=== PATIENT | female | born 1955 | race Caucasian/White ===

== ENCOUNTER → 2018-08-19 14:26 | Outpatient (CLI) | payer OTHER, SELFPAY ==
[2018-08-17 18:00] VITALS: BMI 23.3
[2018-08-19 14:27] LABS: Mucous, Urine 0 SEEN /hpf (<or=2+); Red Blood Cells-Urine 0 SEEN /hpf (0-5)
[2018-08-19 14:39] LABS: Color, Urine Yellow (Yellow); Glucose, Dipstick Normal (Normal); Ketone-Dipstick Negative (Negative); Leukocyte Esterase-Dipstick 25 /ul (Negative); Nitrite-Dipstick Negative (Negative); Occult Blood-Urine Negative /ul (Negative); Protein-Dipstick Negative (Negative); Urine Bilirubin Dipstick Negative (Negative); Urine Clarity Sl. Cloudy (Clear); Urine Urobilinogen Normal (Normal)
[2018-08-19 14:56] LABS: Bacteria 1+ /hpf (None Seen); Squamous Epithelial Cells - UA 5-10 SEEN /hpf (5-10); White Blood Cells 0-5 SEEN /hpf (0-5)
== END ==
PROVIDERS: Family Provider Family Medicine; PCP Family Medicine; Referring Provider Physician Assistant Surgical; Visit Provider Physician Assistant Surgical
DX: B37.3 Candidiasis of vulva and vagina (principal)
CPT/HCPCS: 81001; 87086; 87088

== ENCOUNTER 2018-12-11 15:03 | Observation (INO) | payer OTHER, SELFPAY ==
[2018-08-17 18:00] VITALS: BMI 23.3
[2018-12-11] VITALS (10 sets, daily range): BP systolic 113–178; BP diastolic 76–97; PULSE 71–91; RESP 16–18; TEMP 36.8–36.9; O2SAT 95–98; BMI 24.3; BMI 24.0
--- NOTE | 2018-12-11 15:17 | EKG12_ITS ---
Test Reason : CP ADMISSION Blood Pressure : / mmHG Vent. Rate : 077 BPM Atrial Rate : 077 BPM P-R Int : 138 ms QRS Dur : 092 ms QT Int : 408 ms P-R-T Axes : 040 029 023 degrees QTc Int : 461 ms Normal sinus rhythm Normal ECG When compared with ECG of 11-DEC-2018 15:05, MANUAL COMPARISON REQUIRED, DATA IS UNCONFIRMED Confirmed by DAVID GARCIA, JOSEF ([id number]), news assignment editor JANINE BOUCHER ([id number]) on 12/14/2018 10:39:05 A M Referred By: Shelton Odom Confirmed By:TOR HERNANDEZ MD
--- NOTE | 2018-12-11 15:20 | ED.DCSUM_ITS ---
- ER Visit Summary Date of Service: 12/11/18 Chief Complaint: [Chest pain] History of Present Illness: The patient is a 62 F [presents to the emergency department with chest discomfort that started 2 AM this morning. Patient states she awoke with pressure and heaviness in her left chest lasted about 10 minutes or so. Patient denied any nausea or vomiting associated with it or diaphoresis. Patient gives history of 2 days ago having a syncopal episode while sitting in her chair at a baseball game. Patient woke up this morning and continued to have some minimal discomfort over the left chest and states that she just does not feel right. Patient did have recent travel to [place] several weeks ago where they drove back and forth. Patient denies any fever or cough. Patient was seen at her primary care physician's office today and was referred to the emergency department for evaluation of her chest pain. She took aspirin earlier today.] Physical Examination: [HEENT-PERRLA, EOMI. Cranial nerves II through XII grossly intact. TMs clear. Mucous membranes moist. No adenopathy. Cardiovascular-regular rate and rhythm without murmur or ectopy Lungs-clear to auscultation, chest wall stable without crepitus or subcu emphysema Abdomen-normoactive bowel sounds, soft, nontender, no rebound or rigidity, no peritoneal signs. Extremities-intact ?4, normal range of motion, normal pulses, atraumatic] Test Results: [EKG obtained showed a sinus rhythm with a ventricular rate of 83 bpm with septal infarct and possible left atrial enlargement.] CBC with differential shows a white count of 3.8, hemoglobin 13.7, hematocrit 41, platelets 236. Chemistries unremarkable. Troponin is less than 0.15. D-dimer is less than 0.27. Chest x-ray showed nothing acute. Emergency Department Course and Treatment: [She had an IV line established and was she was placed on a radiation monitor. Patient was given 1 sublingual nitro which seemed to improve her pain.] Treatment Plan: [Admit for further work-up and evaluation of her chest pain] Disposition: [Admit] Impression: [Chest pain-rule out acute coronary syndrome.] This note was generated with [employer] software. It may contain incorrect words, spelling, and punctuation that were not noted in review of the chart prior to signing ED Disposition - Plan for ED Patient: Referrals: Gaston Hudson MD [NON-STAFF] -
[2018-12-11 15:26] LABS: Absolute Lymphocyte Count 0.85 X10^3/uL (0.83-4.51); Absolute Neutrophil Count 2.3 X10^3/uL (2.0-7.7); Basophil# 0.03 X10^3/uL; Basophil% 0.8 % (0-1); Eosinophil# 0.04 X10^3/uL; Eosinophils% 1.1 % (0-5); Hematocrit 41.5 % (37-47); Hemoglobin 13.7 g/dL (12.0-15.0); Lymphocyte # 0.85 X10^3/ul (4.0); Lymphocyte % 22.6 % (19-41); Mean Corpuscular Hgb 32.4 pg (27.0-32.0); Mean Corpuscular Volume 98.1 fL (81-99); Mean Platelet Vol. 9.1 fl (6.2-12.0); Monocyte# 0.52 X10^3/uL; Monocyte% 13.8 % (0-10); NRBC Flagged by Analyzer 0 % (0-5); Neutrophil # 2.31 X10^3/uL (2.7-7.7); Neutrophil % 61.4 % (47-70); Platelet Count 236 K/mm3 (150-450); RBC Distribution Width CV 11.8 % (11.6-14.6); RBC Distribution Width SD 42.2 fl (35.1-43.9); Red Blood Count 4.23 M/mm3 (4.2-5.4); White Blood Count 3.8 K/mm3 (4.4-11.0)
[2018-12-11] MEDS: 0.9% Normal Saline 1,000 ML 150 ML IV (15:27)
[2018-12-11] MEDS: Nitroglycerin SL (ED/IMG/CATH) 0.4 MG TABLET SUBLINGUAL ×2 (15:27→15:41)
--- NOTE | 2018-12-11 15:30 | RAD_ITS ---
STUDY: X-RAY CHEST REASON FOR EXAM: Female, 62 years old. Chest pain TECHNIQUE: Frontal view of the chest COMPARISON: None. FINDINGS: The lungs are clear. There are no pleural effusions. There is no pneumothorax. The heart is normal in size. The visualized osseous structures are within normal limits. RAD/Chest 1 View (Portable) IMPRESSION: No acute thoracic pathology. Electronically Signed: Conor Up, at 16:07 EDT Tel , Service support ,
[2018-12-11 15:41] LABS: Anion Gap 8 (5-15); BUN 11 mg/dL (7-18); BUN/Creat Ratio 12.5 RATIO (10-20); Calcium,Total 9.6 mg/dL (8.5-10.1); Chloride 105 mmol/L (98-107); Creatinine, Serum 0.88 mg/dL (0.55-1.02); EST Glomerular Filtration Rate 69 mL/min (>60); Est Glom Filt Rate - Afr Amer 84 mL/min (>60); Estimated Creatinine Clearance 56.56 ml/min; Glucose 83 mg/dL (74-106); Potassium 3.9 mmol/L (3.5-5.1); Sodium Level 140 mmol/L (136-145)
[2018-12-11 16:08] LABS: D-Dimer Quantitative (DVT/PE) < 0.27 FEU/ug/m (0.27-0.49)
--- NOTE | 2018-12-11 16:53 | HP.PCM_ITS ---
<Ed Douglass - Last Filed: 12/11/18 16:53> Problem List (1) Chest pain Status: Acute (2) Depression Status: Chronic (3) Nicotine abuse Status: Chronic History of Present Illness Date of Admission: 12/11/18 Chief Complaint: chest pain The patient is a 62 year old F with pmhx of depression and occasional social smoker who presents to the ER with c/o chest pain and a recent syncopal episode. On monday she was sitting outside at a baseball game and suddenly became dizzy and passed out. She was out for an unspecified amount of time, and felt normal after she woke up. She had no further issues until today. This AM she woke up with chest pain. This woke her up, and felt like someone was sitting on her chest,. She sat up, did not get out of bed, and after 10-15 minutes it spontaneously went away. Later it came back, less severely, and she describes it as a left sided pressure 2/10 in severity. She went to see her PCP who sent her here. In the ER she was given 2 nitro which helped a little. The pain is nonradiating, and she has no SOB/LH/Dizziness/Nausea. She has had this occur at least two other times randomly this year but has never had it check out. She is very concerned because her mom suddenly of an MS at age 63. Her father also had heart disease. She does not think she will have any issue walking on a tread mill. [] Past Medical History Past Medical History (Chronic Problems): Chronic Problems Depression (Chronic) Nicotine abuse (Chronic) Allergies No Known Allergies Allergy (Unverified 08/17/18 18:01) Home Medications: Ambulatory Orders Medication Instructions Recorded Bupropion HCl [Bupropion HCl Sr] 150 mg PO BID 12/11/18 Surgical History: Surgical History (Last Updated 08/17/18 @ 18:01 by Emy Read) History of hip replacement Z96.649 History of hip surgery Z98.890 Psychiatric History: Depression DIRECTOR CHILD ABUSE THERAPY History: No pertinent DIRECTOR CHILD ABUSE THERAPY history Lives: Spouse/ Significant Other Smoking Status: Current some day smoker Tobacco Use: Cigarettes Alcohol: Occasional Drugs: None - *Family History Maternal History Items: Heart Disease - suddenly of MS at age 63. Paternal History Items: Heart Disease Review of Systems Constitutional: Denies: Chills, Fever, Weight Change HEENT: Denies: Head Aches, Sinus Congestion, Sinus Drainage Cardiovascular: Reports: Chest Pain, Chest Pressure, Syncope. Denies: Chest Tightness, Edema, Heaviness, Light Headedness, Palpitations Respiratory: Denies: Cough, Shortness of Breath, Shortness of breath at rest, Shortness of breath upon exertion, Sputum production, Wheezing Gastrointestinal: Denies: Abdominal Pain, Diarrhea, Nausea, Vomiting Genitourinary: Denies: Dysuria Musculoskeletal: Denies: Joint Pain, Joint Tenderness Skin: Denies: Rash, Wounds Neurological: Denies: Numbness, Tingling, Focal weakness Psychiatric: Denies: Anxiety, Depression, Homicidal Ideations, Suicidal Ideations Hematologic/ Lymphatic: Denies: Easy Bruising, Easy Bleeding VTE Information - Inpt Only VTE Present on Admission: No VTE Mechan Device Prophylaxis: None VTE Pharm Prophylaxis ordered?: Yes Patient Problems: Active and Suspected Problems Chest pain (Acute) - Physical Exam General: Alert, Oriented x3, Cooperative HEENT: Atraumatic, PERRLA, EOMI, Normocephalic Neck: Supple, No JVD, Negative Carotid Bruits Lungs: Clear to auscultation, Normal air movement Cardiovascular: Regular rate, No murmurs Abdomen: Bowel Sounds Present, Soft, Non Tender Extremities: No edema, Capillary Refill Less than 3 Seconds Skin: No rashes, No breakdown Musculoskeletal: No Tenderness to Palpation of Joints or Extremities Neurological: Cranial nerves II-XII grossly intact Psych/Mental Status: Normal Affect, Appropriate Vital Signs Temp Pulse Resp BP Pulse Ox 98.5 F 91 18 113/76 95 12/11/18 15:03 12/11/18 15:41 12/11/18 16:21 12/11/18 16:21 12/11/18 16:21 Oxygen Delivery Method Room Air Weight: 116 lb 2.938 oz Body Mass Index (BMI) 24.3 Laboratory Tests Past 24 Hrs 12/11/18 12/11/18 12/11/18 15:17 15:17 15:17 WBC 3.8 L RBC 4.23 Hgb 13.7 Hct 41.5 MCV 98.1 MCH 32.4 H MCHC 33.0 RDW Std Deviation 42.2 RDW Coeff of Tony 11.8 Plt Count 236 MPV 9.1 Immature Gran % (Auto) 0.300 Neut % (Auto) 61.4 Lymph % (Auto) 22.6 Taliaferro % (Auto) 13.8 H Eos % (Auto) 1.1 Baso % (Auto) 0.8 Absolute Neuts (auto) 2.3 Absolute Lymphs (auto) 0.85 Nucleated RBC % 0 D-Dimer Quant (PE/DVT) Cancelled Sodium 140 Potassium 3.9 Chloride 105 Carbon Dioxide 27.0 Anion Gap 8 BUN 11 Creatinine 0.88 Estim Creat Clear Calc 56.56 Est GFR (MDRD) Af Amer 84 Est GFR (MDRD) Non-Af 69 BUN/Creatinine Ratio 12.5 Glucose 83 Calcium 9.6 Troponin I < 0.015 12/11/18 15:37 WBC RBC Hgb Hct MCV MCH MCHC RDW Std Deviation RDW Coeff of Tony Plt Count MPV Immature Gran % (Auto) Neut % (Auto) Lymph % (Auto) Taliaferro % (Auto) Eos % (Auto) Baso % (Auto) Absolute Neuts (auto) Absolute Lymphs (auto) Nucleated RBC % D-Dimer Quant (PE/DVT) < 0.27 L Sodium Potassium Chloride Carbon Dioxide Anion Gap BUN Creatinine Estim Creat Clear Calc Est GFR (MDRD) Af Amer Est GFR (MDRD) Non-Af BUN/Creatinine Ratio Glucose Calcium Troponin I Assessment/Plan All Active Problems Chest pain (Acute) Yeast vaginitis (Acute) 1. Chest pain - woke up with CP described as someone sitting on her chest. Slightly relieved with nitro. Mother suddenly at 63 with MS. Father also had hx CAD. She has no hx of heart disease. She rarely smokes cigarettes. EKG is negative, CXR is negative, Trop is negative. -Admit to PCU -Tele -Cycle enzymes -Repeat AM EKG -Treadmill stress in AM. 2. Recent syncope - in addition to above, obtain echo. 3. Occasional smoker - patch if desired. Needs complete cessation DVT ppx: lovenox This patient was seen by Ed Douglass PA-C under the supervision of Dr. Odom. <Shelton Odom - Last Filed: 12/11/18 20:26> History of Present Illness The patient is a 62 year old F with no significant medical problems except depression came to ED with chest pressure when she woke up. This is localized, left-sided without associated with shortness of breath, dizziness, nausea, diaphoresis or palpitation. Earlier, on past Monday about 2 days ago she passed out twice in quick succession when she was sitting outside on [place] [employer] game. Patient states she suddenly felt dark before her eyes along with spinning sensation and see passed out. She woke up and then passed again lasted for about 10 minutes. She felt normal when she woke up from syncope. She denies any previous history of chest pressure or syncope, stroke or coronary artery disease. [] Past Medical History Allergies No Known Allergies Allergy (Unverified 08/17/18 18:01) Surgical History: Surgical History (Last Updated 08/17/18 @ 18:01 by Emy Read) History of hip replacement Z96.649 History of hip surgery Z98.890 - Physical Exam General: Alert, Oriented x3, Cooperative HEENT: Atraumatic, PERRLA, EOMI, Normocephalic Neck: Supple, No JVD, Negative Carotid Bruits Lungs: Clear to auscultation, Normal air movement, No rhonchi, No wheeze, No rales Cardiovascular: Regular rate, Regular Rhythm, Normal S1, Normal S2, No murmurs Abdomen: Bowel Sounds Present, Soft, Non Tender, Non-Distended Extremities: No edema, Capillary Refill Less than 3 Seconds Skin: No rashes, No breakdown Musculoskeletal: No Tenderness to Palpation of Joints or Extremities Neurological: Cranial nerves II-XII grossly intact Psych/Mental Status: Normal Affect, Appropriate Vital Signs Temp Pulse Resp BP Pulse Ox 98.3 F 73 16 138/85 H 97 12/11/18 17:22 12/11/18 18:51 12/11/18 17:22 12/11/18 17:22 12/11/18 17:22 Oxygen Delivery Method Room Air Weight: 114 lb 10.246 oz Body Mass Index (BMI) 24.0 Intake and Output for Last 24 Hours 12/09/18 12/10/18 12/11/18 23:59 23:59 23:59 Intake Total 422.5 / 422.5 Balance 422.5 / 422.5 Laboratory Tests Past 24 Hrs 12/11/18 12/11/18 12/11/18 15:17 15:17 15:17 WBC 3.8 L RBC 4.23 Hgb 13.7 Hct 41.5 MCV 98.1 MCH 32.4 H MCHC 33.0 RDW Std Deviation 42.2 RDW Coeff of Tony 11.8 Plt Count 236 MPV 9.1 Immature Gran % (Auto) 0.300 Neut % (Auto) 61.4 Lymph % (Auto) 22.6 Taliaferro % (Auto) 13.8 H Eos % (Auto) 1.1 Baso % (Auto) 0.8 Absolute Neuts (auto) 2.3 Absolute Lymphs (auto) 0.85 Nucleated RBC % 0 D-Dimer Quant (PE/DVT) Cancelled Sodium 140 Potassium 3.9 Chloride 105 Carbon Dioxide 27.0 Anion Gap 8 BUN 11 Creatinine 0.88 Estim Creat Clear Calc 56.56 Est GFR (MDRD) Af Amer 84 Est GFR (MDRD) Non-Af 69 BUN/Creatinine Ratio 12.5 Glucose 83 Calcium 9.6 Troponin I < 0.015 12/11/18 12/11/18 15:37 18:05 WBC RBC Hgb Hct MCV MCH MCHC RDW Std Deviation RDW Coeff of Tony Plt Count MPV Immature Gran % (Auto) Neut % (Auto) Lymph % (Auto) Taliaferro % (Auto) Eos % (Auto) Baso % (Auto) Absolute Neuts (auto) Absolute Lymphs (auto) Nucleated RBC % D-Dimer Quant (PE/DVT) < 0.27 L Sodium Potassium Chloride Carbon Dioxide Anion Gap BUN Creatinine Estim Creat Clear Calc Est GFR (MDRD) Af Amer Est GFR (MDRD) Non-Af BUN/Creatinine Ratio Glucose Calcium Troponin I < 0.015 Assessment/Plan This patient was seen in conjunction with Ed NOWAK. I have independently int erviewed and examined the patient and reviewed pertinent history, examination findings, laboratory and plan of management. I have reviewed the note and agree with the documented findings with the few additional points. In brief, patient is admitted for localized left-sided chest pressure without associated shortness of breath, dizziness, diaphoresis or palpitation. She also passed out twice in quick succession about 2 days ago. Overall her passing seems related to dehydration as she did not had much water food intake except cereal in the morning. It may be vasovagal syncope. 2 serial EKG shows normal sinus rhythm with no ST-T changes suggestive of ischemia. Troponins are normal. Chest x-ray normal. 2D echo and nuclear stress test for tomorrow morning. Plan of management discussed with patient's near the bedside. I have discussed my assessment with Ed NOWAK and orders have been reviewed. Laboratory Results 12/11/18 15:17: WBC 3.8 L, RBC 4.23, Hgb 13.7, Hct 41.5, MCV 98.1, MCH 32.4 H, MCHC 33.0, RDW Std Deviation 42.2, RDW Coeff of Tony 11.8, Plt Count 236, MPV 9.1, Immature Gran % (Auto) 0.300, Neut % (Auto) 61.4, Lymph % (Auto) 22.6, Taliaferro % (Auto) 13.8 H, Eos % (Auto) 1.1, Baso % (Auto) 0.8, Absolute Neuts (auto) 2.3, Absolute Lymphs (auto) 0.85, Nucleated RBC % 0 12/11/18 15:17: Sodium 140, Potassium 3.9, Chloride 105, Carbon Dioxide 27.0, Anion Gap 8, BUN 11, Creatinine 0.88, Estim Creat Clear Calc 56.56, Est GFR (MDRD) Af Amer 84, Est GFR (MDRD) Non-Af 69, BUN/Creatinine Ratio 12.5, Glucose 83, Calcium 9.6, Troponin I < 0.015 12/11/18 15:17: D-Dimer Quant (PE/DVT) Cancelled 12/11/18 15:37: D-Dimer Quant (PE/DVT) < 0.27 L 12/11/18 18:05: Troponin I < 0.015 Clinical Impression(s) from Imaging Studies Chest X-Ray 12/11/18 15:30 IMPRESSION: No acute thoracic pathology. Code Visit OBSV E&M: [id number] Initial observation care L3
--- NOTE | 2018-12-11 17:00 | EKG12_ITS ---
Test Reason : Blood Pressure : / mmHG Vent. Rate : 065 BPM Atrial Rate : 065 BPM P-R Int : 162 ms QRS Dur : 104 ms QT Int : 442 ms P-R-T Axes : 049 021 005 degrees QTc Int : 459 ms Normal sinus rhythm Normal ECG When compared with ECG of 11-DEC-2018 17:18, MANUAL COMPARISON REQUIRED, DATA IS UNCONFIRMED Confirmed by DAVID GARCIA, JOSEF ([id number]), business editor JANINE BOUCHER ([id number]) on 12/14/2018 10:40:16 A M Referred By: Shelton Odom Confirmed By:TOR HERNANDEZ MD
[2018-12-11] MEDS: Enoxaparin 40 MG/0.4 ML Syringe SC (18:52)
[2018-12-11] MEDS: buPROPion (SR) 150 MG Tablet.SA PO (21:00)
[2018-12-12] VITALS (9 sets, daily range): BP systolic 123–143; BP diastolic 70–91; PULSE 60–81; RESP 14–16; TEMP 35.8–37.1; O2SAT 97–99
[2018-12-12] MEDS: Aspirin 81 MG TAB.CHEW PO (05:21)
[2018-12-12] MEDS: 0.9% NaCl Peripheral Flush Adult/Peds IV (05:55)
--- NOTE | 2018-12-12 05:55 | EKG12_ITS ---
Test Reason : CP Blood Pressure : / mmHG Vent. Rate : 083 BPM Atrial Rate : 083 BPM P-R Int : 148 ms QRS Dur : 090 ms QT Int : 370 ms P-R-T Axes : 035 010 026 degrees QTc Int : 434 ms Normal sinus rhythm Possible Left atrial enlargement Septal infarct , age undetermined Abnormal ECG Confirmed by AFSHAN BLANCAS ([id number]), photograph editor JANINE BOUCHER ([id number]) on 12/18/2018 1:25:32 PM Referred By: Shelton Odom Confirmed By:AFSHAN BLANCAS
--- NOTE | 2018-12-12 05:55 | ECHOD_ITS ---
Reason For Study: SYNCOPE Procedure This was a 2D Doppler, Color Flow transthoracic echocardiogram. Exam performed in department. Left Ventricle Normal size and thickness. The estimated ejection fraction is 55 %. No evidence for diastolic dysfunction. No regional wall motion abnormalities noted. Right Ventricle Normal RV size. Normal systolic function. Atria Normal left atrium. Normal right atrium. Bubble contrast study negative for right to left interatrial shunt. Mitral Valve There is no mitral valve stenosis. Trivial mitral valve insufficiency. Tricuspid Valve There is no tricuspid stenosis. Unable to estimate RV systolic pressure due to insufficient tricuspid regurgitant envelope. Trivial tricuspid valve insufficiency. Aortic Valve Trisinus/trileaflet aortic valve. There is no aortic stenosis. No aortic valve insufficiency. Pulmonic Valve There is no pulmonic valvular stenosis. No pulmonic valve insufficiency. Great Vessels Normal aortic root. Pericardium/Pleural No pericardial effusion. Medication Performed a rapid injection of agitated mix of 9 cc saline and 1cc air to assess for atrial septal defect. MMode/2D Measurements & Calculations LVIDd: 3.7 cm IVSd: 0.78 cm Ao root diam: 3.3 cm LVIDs: 2.7 cm LVPWd: 0.88 cm RVDd: 3.2 cm FS: 27.2 % LAV(MOD-bp): 37.2 ml LVAd ap4: 28.3 cm2 SV(MOD-sp4): 43.2 ml LAV(MOD-bp) Indexed: 26.3 ml/m2 EDV(MOD-sp4): 81.9 ml LAV(MOD-sp2): 33.9 ml EDV(sp4-el): 83.9 ml LAV(MOD-sp4): 39.3 ml LVAs ap4: 17.1 cm2 ESV(MOD-sp4): 38.7 ml ESV(sp4-el): 36.7 ml EF(MOD-sp4): 52.7 % EF(sp4-el): 56.3 % SV(sp4-el): 47.2 ml LA A4 area: 15.2 cm2 LA dimension(2D): 3.3 cm RA A4 area: 14.0 cm2 Time Measurements MV dec time: 0.26 sec Doppler Measurements & Calculations MV E max mateo: 42.7 cm/sec Lat Peak E' Mateo: 8.9 cm/sec Med Peak E' Mateo: 7.5 cm/sec MV A max mateo: 50.3 cm/sec E/E' lat: 4.8 E/E' med: 5.7 MV E/A: 0.85 Ao V2 max: 130.4 cm/sec LV V1 max: 80.9 cm/sec PA V2 max: 78.1 cm/sec Ao max P.8 mmHg LV V1 max P.6 mmHg TR max mateo: 203.4 cm/sec TR max P.5 mmHg Interpretation Summary The estimated ejection fraction is 55 %. No evidence for diastolic dysfunction. Trivial mitral valve insufficiency. Trivial tricuspid valve insufficiency. Ordering Physician: Ed Douglass Referring Physician: Shelton Odom Performed By: Grace Puckett RDCS
[2018-12-12 06:01] LABS: Cholesterol 256 mg/dL (200); High Density Lipoprotein 69 mg/dL; Triglycerides 131 mg/dL; Very Low Density Lipoprotein 26 mg/dL (5-40)
[2018-12-12] MEDS: buPROPion (SR) 150 MG Tablet.SA PO ×2 (09:30→21:19)
--- NOTE | 2018-12-12 13:17 | STRESSREP ---
Stress Test Report Date: 12/12/2018 Procedure: Exercise tolerance test/imaging study Indications: Chest pain Consent: Per the patient Procedure: The patient exercised on a Dillon protocol for 6 minutes achieving a peak heart rate of 153 bpm (95 % predicted maximal heart rate) with a peak blood pressure 152/80 mmHg and a peak MET capacity of 7 METs. The baseline ECG demonstrated normal sinus rhythm, poor R wave progression in the anterior leads. The peak exercise ECG demonstrated about [address] depression in the lateral leads and inferior leads. EKG during recovery revealed return of ST segments to baseline. [There were no cardiac dysrhythmias pretest, during exercise, or recovery]. The functional capacity was considered borderline for age. There was exercised induced mild chest discomfort which got better during the recovery period. The examination was discontinued secondary to discomfort. Impression: 1. Technically adequate (percent predicted maximal heart rate greater than 85%) exercise tolerance test 2. Stress test is positive for exercise-induced EKG changes of ischemia 3. The test test is positive for exercise-induced chest pain 4. Functional capacity is borderline for age 5. Nuclear images pending Myocardial perfusion imaging study: Technique: The patient was injected with 11.3 mCi of technetium 99m Cardiolite and subsequently rest SPECT Cardiolite nuclear imaging was obtained in the horizontal long, vertical long, and short axis views. The patient exercised on a Dillon protocol. Please see above for details. The patient was injected with 32.8 mCi of technetium 99m Cardiolite and subsequently stress SPECT Cardiolite nuclear imaging was obtained in the horizontal long, vertical long, and short axis views. A gated Cardiolite study at peak stress was obtained. Interpretation: Rest and stress SPECT Cardiolite nuclear imaging status post realignment, normalization, and attenuation correction, demonstrates overall normal myocardial radioisotope uptake. The gated Cardiolite study demonstrates no significant regional wall motion abnormalities. The reported LVEF is 61 %. Impression: 1. There is no evidence of ischemia or infarction on the nuclear portion of the test. However the EKG portion was abnormal as described above. 2. The gated Cardiolite study reports an LVEF of 61 %. This note was generated with [employer] software. It may contain incorrect words, spelling, and punctuation that were not noted in checking the note before signing.
--- NOTE | 2018-12-12 13:40 | PCM.PROGNOTE ---
<Ed Douglass - Last Filed: 12/12/18 13:40> Patient Problems: Active and Suspected Problems Chest pain (Acute) Subjective: Ongoing mild left sided chest pressure. No SOB. No dizziness, LH. No Nausea. No diaphoresis. Stress test was abnormal. - Physical Exam General: Alert, Oriented x3, Cooperative HEENT: Atraumatic, PERRLA, EOMI, Normocephalic Neck: Supple, No JVD, Negative Carotid Bruits Lungs: Clear to auscultation, Normal air movement Cardiovascular: Regular rate, No murmurs Abdomen: Bowel Sounds Present, Soft, Non Tender Extremities: No edema, Capillary Refill Less than 3 Seconds Skin: No rashes, No breakdown Musculoskeletal: No Tenderness to Palpation of Joints or Extremities Neurological: Cranial nerves II-XII grossly intact Psych/Mental Status: Normal Affect, Appropriate, Alert and oriented to time, place, person, mood and affect Vital Signs Temp Pulse Resp BP Pulse Ox 98.1 F 78 16 125/71 H 97 12/12/18 09:23 12/12/18 09:23 12/12/18 09:23 12/12/18 09:23 12/12/18 09:23 Oxygen Delivery Method Room Air Weight: 114 lb 10.246 oz Body Mass Index (BMI) 24.0 Intake and Output for Last 24 Hours 12/10/18 12/11/18 12/12/18 23:59 23:59 23:59 Intake Total 872.5 / 872.5 240 / 240 Balance 872.5 / 872.5 240 / 240 Laboratory Tests Past 24 Hrs 12/11/18 12/11/18 12/11/18 15:17 15:17 15:17 WBC 3.8 L RBC 4.23 Hgb 13.7 Hct 41.5 MCV 98.1 MCH 32.4 H MCHC 33.0 RDW Std Deviation 42.2 RDW Coeff of Tony 11.8 Plt Count 236 MPV 9.1 Immature Gran % (Auto) 0.300 Neut % (Auto) 61.4 Lymph % (Auto) 22.6 [place] % (Auto) 13.8 H Eos % (Auto) 1.1 Baso % (Auto) 0.8 Absolute Neuts (auto) 2.3 Absolute Lymphs (auto) 0.85 Nucleated RBC % 0 D-Dimer Quant (PE/DVT) Cancelled Sodium 140 Potassium 3.9 Chloride 105 Carbon Dioxide 27.0 Anion Gap 8 BUN 11 Creatinine 0.88 Estim Creat Clear Calc 56.56 Est GFR (MDRD) Af Amer 84 Est GFR (MDRD) Non-Af 69 BUN/Creatinine Ratio 12.5 Glucose 83 Calcium 9.6 Troponin I < 0.015 Triglycerides Cholesterol LDL Cholesterol VLDL Cholesterol HDL Cholesterol 12/11/18 12/11/18 12/11/18 15:37 18:05 21:02 WBC RBC Hgb Hct MCV MCH MCHC RDW Std Deviation RDW Coeff of Tony Plt Count MPV Immature Gran % (Auto) Neut % (Auto) Lymph % (Auto) [place] % (Auto) Eos % (Auto) Baso % (Auto) Absolute Neuts (auto) Absolute Lymphs (auto) Nucleated RBC % D-Dimer Quant (PE/DVT) < 0.27 L Sodium Potassium Chloride Carbon Dioxide Anion Gap BUN Creatinine Estim Creat Clear Calc Est GFR (MDRD) Af Amer Est GFR (MDRD) Non-Af BUN/Creatinine Ratio Glucose Calcium Troponin I < 0.015 < 0.015 Triglycerides Cholesterol LDL Cholesterol VLDL Cholesterol HDL Cholesterol 12/12/18 05:20 WBC RBC Hgb Hct MCV MCH MCHC RDW Std Deviation RDW Coeff of Tony Plt Count MPV Immature Gran % (Auto) Neut % (Auto) Lymph % (Auto) [place] % (Auto) Eos % (Auto) Baso % (Auto) Absolute Neuts (auto) Absolute Lymphs (auto) Nucleated RBC % D-Dimer Quant (PE/DVT) Sodium Potassium Chloride Carbon Dioxide Anion Gap BUN Creatinine Estim Creat Clear Calc Est GFR (MDRD) Af Amer Est GFR (MDRD) Non-Af BUN/Creatinine Ratio Glucose Calcium Troponin I Triglycerides 131 Cholesterol 256 H LDL Cholesterol 161 H VLDL Cholesterol 26 HDL Cholesterol 69 Medical Necessity - Tobacco Use Smoking Status: Current some day smoker Tobacco Use: Cigarettes Assessment/Plan All Active Problems Chest pain (Acute) Yeast vaginitis (Acute) 1. Chest pain - woke up with CP described as someone sitting on her chest. Ongoing left sided chest pressure. Abnormal stress. Cardiology consulted. Echo as below. D dimer negative. Trop negx3. CXR negative. 2. Recent syncope - no events on tele. Echo shows: Interpretation Summary The estimated ejection fraction is 55 %. No evidence for diastolic dysfunction. Trivial mitral valve insufficiency. Trivial tricuspid valve insufficiency. 3. Occasional smoker - patch if desired. Needs complete cessation 4. HLD - ASCVD score is 6.9% so I have started moderate dose atorvastatin. DVT ppx: lovenox This patient was seen by Ed Douglass PA-C under the supervision of Dr. Lindquist. <Korey Lindquist - Last Filed: 12/12/18 13:59> - Physical Exam Vital Signs Temp Pulse Resp BP Pulse Ox 98.1 F 78 16 125/71 H 97 12/12/18 09:23 12/12/18 09:23 12/12/18 09:23 12/12/18 09:23 12/12/18 09:23 Oxygen Delivery Method Room Air Weight: 52 kg Body Mass Index (BMI) 24.0 Intake and Output for Last 24 Hours 12/10/18 12/11/18 12/12/18 23:59 23:59 23:59 Intake Total 872.5 / 872.5 240 / 240 Balance 872.5 / 872.5 240 / 240 Laboratory Tests Past 24 Hrs 12/11/18 12/11/18 12/11/18 15:17 15:17 15:17 WBC 3.8 L RBC 4.23 Hgb 13.7 Hct 41.5 MCV 98.1 MCH 32.4 H MCHC 33.0 RDW Std Deviation 42.2 RDW Coeff of Tony 11.8 Plt Count 236 MPV 9.1 Immature Gran % (Auto) 0.300 Neut % (Auto) 61.4 Lymph % (Auto) 22.6 [place] % (Auto) 13.8 H Eos % (Auto) 1.1 Baso % (Auto) 0.8 Absolute Neuts (auto) 2.3 Absolute Lymphs (auto) 0.85 Nucleated RBC % 0 D-Dimer Quant (PE/DVT) Cancelled Sodium 140 Potassium 3.9 Chloride 105 Carbon Dioxide 27.0 Anion Gap 8 BUN 11 Creatinine 0.88 Estim Creat Clear Calc 56.56 Est GFR (MDRD) Af Amer 84 Est GFR (MDRD) Non-Af 69 BUN/Creatinine Ratio 12.5 Glucose 83 Calcium 9.6 Troponin I < 0.015 Triglycerides Cholesterol LDL Cholesterol VLDL Cholesterol HDL Cholesterol 12/11/18 12/11/18 12/11/18 15:37 18:05 21:02 WBC RBC Hgb Hct MCV MCH MCHC RDW Std Deviation RDW Coeff of Tony Plt Count MPV Immature Gran % (Auto) Neut % (Auto) Lymph % (Auto) [place] % (Auto) Eos % (Auto) Baso % (Auto) Absolute Neuts (auto) Absolute Lymphs (auto) Nucleated RBC % D-Dimer Quant (PE/DVT) < 0.27 L Sodium Potassium Chloride Carbon Dioxide Anion Gap BUN Creatinine Estim Creat Clear Calc Est GFR (MDRD) Af Amer Est GFR (MDRD) Non-Af BUN/Creatinine Ratio Glucose Calcium Troponin I < 0.015 < 0.015 Triglycerides Cholesterol LDL Cholesterol VLDL Cholesterol HDL Cholesterol 12/12/18 05:20 WBC RBC Hgb Hct MCV MCH MCHC RDW Std Deviation RDW Coeff of Tony Plt Count MPV Immature Gran % (Auto) Neut % (Auto) Lymph % (Auto) [place] % (Auto) Eos % (Auto) Baso % (Auto) Absolute Neuts (auto) Absolute Lymphs (auto) Nucleated RBC % D-Dimer Quant (PE/DVT) Sodium Potassium Chloride Carbon Dioxide Anion Gap BUN Creatinine Estim Creat Clear Calc Est GFR (MDRD) Af Amer Est GFR (MDRD) Non-Af BUN/Creatinine Ratio Glucose Calcium Troponin I Triglycerides 131 Cholesterol 256 H LDL Cholesterol 161 H VLDL Cholesterol 26 HDL Cholesterol 69 Assessment/Plan This patient was seen in conjunction with Ed Douglass PA-C . I have independently interviewed and examined the patient and reviewed pertinent historical, laboratory, and other data. Please refer to Ed Douglass PA-C note for details of this patient's presentation, findings, and recommendations. I have reviewed Ed Douglass PA-C note and concur with documented findings. In brief, patient is a 62-year-old lady who presented with chest pain. Patient had experienced syncopal episode 2 days prior to admission. Placed on a monitored bed underwent a nuclear stress test which was positive for stress-induced ischemia consult subsequently placed to cardiology Physical Examination: GENERAL: cooperative HEENT: Atraumatic; moist oral mucosa EYES; Anicteric, Normal Conjunctiva NECK; supple, normal thyroid, no distended JVD. RESPIRATORY: Diminished to auscultation bilaterally, CARDIOVASCULAR: Regular S1 S2, no audible murmurs GI: soft, non-tender, normoactive bowel sounds, : No Renal angle tenderness; NEURO: Awake; no lateralizing signs. SKIN: No Rash PSYCH; Normal affect Assessment: 1. Chest Pain 2. Abnormal stress test 3. Syncope Episode 4. 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 DVT prophylaxis Recommendations: 1. I have discussed the results of my overview and impressions with the patient 2. Options for management were reviewed Code Visit OBSV E&M: 64235 Observ/hosp same date L3
--- NOTE | 2018-12-12 14:41 | CASEMGMT ---
Addendum entered by Ericka Aguilar 12/12/18 15:09: This RN CM received call back from Jessica Barkley at [facility], ref #[id number]. Per Jessica, after 23 hrs as OBS, [facility] considers pt inpt and auth is required for stay at that time. Per Priscilla in [facility] precert, auth will be sent for tomorrow am as pt will hit 23 hours at 1603 tonight. Per Jessica at [facility], pt will be covered at 100% for hospital stay after family deductible and out of pocket are met and per Jessica, pt has met both of those already. She did give this RN CM a disclaimer regarding possible out of network physicians, etc. Pt updated on all at this time and voices understanding. Pt is still awaiting cardio c/s. Felipa WADDELL CM Original Note: Pt may need a heart cath and is concerned about her insurance covering it here. This RN CM printed info from [facility] website about coverage here at [facility] for pt at this time and placed call to [facility]. [facility] is set to call this RN CM back in regards to same faustina. There were 11 calls ahead so this RN put in number for [facility] to call back. Pt updated at this time and states she will attempt to speak with regarding same. Dr. Antunez was consulted in regards to stress test results. Felipa WADDELL CM
[2018-12-12] MEDS: Acetaminophen 325 MG Tablet 650 MG PO (15:52)
--- NOTE | 2018-12-12 18:09 | PCM.CONS.C ---
Reason for Consult Date of Consultation: 12/12/18 Reason for Consultation: Chest pain History of Present Illness: The patient is a 62 year old F with pmhx of depression and occasional social smoker who presented to the ER with c/o chest pain and a recent syncopal episode. On monday she was sitting outside at a baseball game and suddenly became dizzy and passed out. She was out for an unspecified amount of time, and felt normal after she woke up. The day of presentation she says she woke up and felt that there was a sensation of someone sitting on her chest. She had no dizziness no nausea no diaphoresis no vomiting. The pain was fairly significant and left-sided. She got concerned because of her significant family history and her mother dying at the age of 63 she went to her primary physician's office and was sent to the emergency room. In the emergency room she was evaluated and then admitted. She ruled out for myocardial infarction cardiac enzymes were noted to be normal she underwent an echocardiographic evaluation which was normal. She underwent stress testing during which significant EKG changes were noted though she did not develop chest pain. This was at 7 metabolic equivalents. Nuclear images were noted to be normal. However due to the concerns as well as the abnormal EKG changes of approximately 2 mm cardiology consultation was sought. She currently is doing well with no chest discomfort. 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 Paternal History Items: Heart Disease Lives: Spouse/ Significant Other Smoking Status: Current some day smoker Tobacco Use: Cigarettes Alcohol: Occasional Drugs: None Review of Systems - Review of Systems General: Denies: Fever, Night Sweats, Fatigue HEENT: Denies: Vision Change Cardiovascular: Reports: Chest Discomfort. Denies: Shortness of Breath, Orthopnea, PND, Peripheral Edema, Palpitations, Lightheadedness, Dizziness, Near Syncope, Syncope Respiratory: Denies: Cough, Sputum Production, Hemoptysis Gastrointestinal: Denies: Hematemesis, Hematochezia, Melena Genitourinary: Denies: Dysuria, Hematuria Muscoloskeletal: Denies: Myalgias Skin: Denies: Rash Neurological: Denies: Dizziness Psychiatric: Denies: Anxiety Hematologic/ Lymphatic: Denies: Lymph Node Enlargement Objective: Vital Signs Temp Pulse Resp BP Pulse Ox 98.7 F 81 16 143/91 H 98 12/12/18 15:23 12/12/18 15:23 12/12/18 15:23 12/12/18 15:23 12/12/18 15:23 Oxygen Delivery Method Room Air Weight: 114 lb 10.246 oz Body Mass Index (BMI) 24.0 Intake and Output for Last 24 Hours 12/10/18 12/11/18 12/12/18 23:59 23:59 23:59 Intake Total 872.5 / 872.5 480 / 480 Balance 872.5 / 872.5 480 / 480 12/11/18 18:05: Troponin I < 0.015 12/11/18 21:02: Troponin I < 0.015 12/12/18 05:20: Triglycerides 131, Cholesterol 256 H, LDL Cholesterol 161 H, VLDL Cholesterol 26, HDL Cholesterol 69 Rhythm: EKG: ECHO: Preserved left ventricular systolic function estimated EF 55% Stress Test: No myocardial evidence of ischemia, however ST depression noted during exercise with no angina Assessment/Plan 1. Chest pain-with abnormal EKG Patient presented with a hospital with chest discomfort, ruled out for infarction and was noted to have an abnormal EKG at a moderate workload. Though the nuclear images were noted to be normal there is concern as to the fact that she has a strong family history and also has an LDL which has been in the 160 range. Due to the above a discussion was undertaken with the patient she felt that she would want to know whether she has coronary disease or not especially due to her mother's history. The risk benefits and alternatives have been explained to her she understands and agrees to proceed and will undergo a cardiac catheterization. The recommendations will be made depending on the results of the above. Her risk factors for atherosclerotic heart disease some on to about 3.5% and at this time it is not imperative that she go on lipid-lowering therapy unless the cardiac catheterization results significantly change the above. Thank you for allowing me to participate in the care of your patient. Please don't hesitate to call if any issues arise
[2018-12-12] MEDS: Atorvastatin Calcium 40 MG Tablet PO (21:20)
[2018-12-12] MEDS: Temazepam 15 MG Capsule 30 MG PO (21:22)
[2018-12-13] VITALS (10 sets, daily range): BP systolic 101–147; BP diastolic 72–93; PULSE 65–98; RESP 16–18; TEMP 36.5–36.8; O2SAT 94–98
--- NOTE | 2018-12-13 05:55 | EKG12_ITS ---
Test Reason : AM EKG Blood Pressure : / mmHG Vent. Rate : 074 BPM Atrial Rate : 074 BPM P-R Int : 170 ms QRS Dur : 096 ms QT Int : 418 ms P-R-T Axes : 058 039 026 degrees QTc Int : 463 ms Normal sinus rhythm Septal infarct , age undetermined Abnormal ECG When compared with ECG of 12-DEC-2018 05:45, MANUAL COMPARISON REQUIRED, DATA IS UNCONFIRMED Confirmed by AFSHAN BLANCAS ([id number]), managing editor MARION FAIRBANKS ([id number]) on 12/25/2018 1:31:37 PM Referred By: Shelton Odom Confirmed By:AFSHAN BLANCAS
[2018-12-13] MEDS: Aspirin 81 MG TAB.CHEW PO (06:17)
--- NOTE | 2018-12-13 07:52 | NURSING ---
VAEBAL REPORT GIVEN TO BAIRON BLAS IN [employer]
--- NOTE | 2018-12-13 08:53 | PN.CARD_ITS ---
Subjectve: Patient seen and evaluated. Appears to be doing well. Objective: Vital Signs Temp Pulse Resp BP Pulse Ox 97.9 F 72 16 101/72 98 12/13/18 06:36 12/13/18 06:36 12/13/18 06:36 12/13/18 06:36 12/13/18 06:36 Oxygen Delivery Method Room Air Weight: 114 lb 10.246 oz Body Mass Index (BMI) 24.0 Intake and Output for Last 24 Hours 12/11/18 12/12/18 12/13/18 23:59 23:59 23:59 Intake Total 872.5 / 872.5 730 / 730 100 / 100 Balance 872.5 / 872.5 730 / 730 100 / 100 General: Awake, Alert, Oriented x 3 HEENT: PERRL, EOMI, Sclera Non Icteric Neck: Supple, Good ROM, No Lymph Node Enlargement Lungs: Clear to auscultation Cardiovascular: Regular Rhythm, Normal S1, Normal S2, No Murmurs, No Rubs, No Gallops Vascular: No Carotid Bruits, Normal Femoral Pulses, Normal Radial Pulses, Normal Dorsalis Pedal Pulse, Normal Posterior Tibial Pulses Abdomen: Bowel Sounds Present, Soft, Non Tender, No HSM, No Organomegaly Extremities: No Cyanosis, No Clubbing, No edema Musculoskeletal: No Erythema Skin: No Rashes Lymphatic: No Lymph Node Enlargement Neurological: No Focal Motor or Sensory Deficit Psych/Mental Status: Appropriate Rhythm: EKG: ECHO: Stress Test: Cardiac Cath: PCI: CT Surgery: Holter monitor: EPS: PPM: CXR: Chest CT Scan: Medical Necessity - Tobacco Use Smoking Status: Current some day smoker Tobacco Use: Cigarettes Assessment/Plan 1. Chest pain-with abnormal EKG * Patient presented with a hospital with chest discomfort, ruled out for infarction and was noted to have an abnormal EKG at a moderate workload. Though the nuclear images were noted to be normal there is concern as to the fact that she has a strong family history and also has an LDL which has been in the 160 range. Due to the above a discussion was undertaken with the patient she felt that she would want to know whether she has coronary disease or not especially due to her mother's history. * * Cardiac catheterization demonstrated the following: Normal left main coronary artery. Left anterior descending artery with no significant stenosis. Left circumflex artery with no high-grade stenosis. Dominant right coronary artery with no significant stenosis. Preserved ejection fraction. Based on the above angiographic findings I do not think that there is any angiographic significant disease which caused the EKG changes. It is likely from small vessel structure. Recommendation would be for diet for her cholesterol Follow-up with primary physician. * Thank you for allowing me to participate in the care of your patient. Please don't hesitate to call if any issues arise
[2018-12-13] MEDS: 0.9% Normal Saline 1,000 ML 75 ML IV (09:08)
--- NOTE | 2018-12-13 09:59 | CL.D_ITS ---
Patient Name: MERY DENISE Study Date: 12/13/2018 Performing: Jg Antunez MD Ht: 58 inches 147 cm : 1955 Wt: 114.8 lbs 52 kg Age: 62 Gender: female BSA: 1.44 PROCEDURE(S) PERFORMED [id number] CLINICAL PROFILE AND INDICATIONS Indications: Suspected CAD Heart Failure: None Stress/Imaging Date: 12/12/2018Stress Test with SPECT MPI: Positive Low Risk CAD Presentations: Symptom unlikely to be ischemic. CONCLUSIONS Normal coronary arteries Normal LV size, wall motion,and systolic function RECOMMENDATIONS Medical therapy DESCRIPTION OF PROCEDURE The patient arrived to the procedure lab. The risks and benefits of the procedure as well as a full d escription of our services here and current unavailability of surgical backup were fully explained to the patient and/or their significant other prior to the catheterization. The Timeout was completed, verifying the correct patient and procedure. The patient's procedural site was prepped and draped in the usual fashion. Local anesthetic was given subcutaneously to right radial region with Lidocaine 2% . Using a modified Seldinger technique, arterial access was obtained via the right radial artery, a 6 Fr sheath was inserted. Right Coronary Artery selective angiography was performed in multiple views using a 5 Fr. 4.0 [place] catheter. Left Coronary Artery selective angiography was performed in multipl e views using a 5 Fr. 4.0 [place] catheter. Left Ventriculography was performed in ORTIZ projection using a 5 Fr. Pigtail catheter. LV to AO pullback pressures were then recorded.The arterial sheath was pulled and a TR Band was applied for hemostasis CORONARY ANGIOGRAPHY DOMINANCE: Right Dominant LEFT HEART ASSESSMENT Left Ventricular Ejection Fraction: by LV Gram 60 % Normal Left Ventricular systolic function Normal Left Ventricular systolic function LEFT MAIN: Angiographically normal LEFT ANTERIOR DESCENDING ARTERY: Angiographically normal CIRCUMFLEX ARTERY: Angiographically normal RIGHT CORONARY ARTERY: Angiographically normal COMPLICATIONS No Complications PROCEDURE MEDICATIONS Fentanyl 50 mcg IV Versed 1 mg IV Oxygen: 2 L/min via nasal cannula Heparin diluted in 23cc Heparinized saline. Patient given 10cc IA of this solution. 12/13/2018 08:33: 55 Verapamil 2.5mg, Ntg 100mcgs, 2000 units of Heparin diluted in 23cc Heparinized saline. Patient give n 10cc IA of this solution. 12/13/2018 08:33:55 SUMMARY OF HEMODYNAMIC DATA Time AIR REST ECG 08:14:37 AO 119/81 (99) SA 08:36:00 LV 139/1, 7 08:44:33 LV 141/2, 7 08:44:39 LV 143/-8, 12 08:45:14 LV 150/-8, 15 08:45:20 LVp 149/-8, 15 08:45:23 AOp 151/78 (109) 08:45:28 Signed By Jg Antunez MD On 12/13/2018 08:58:25 Jg Antunez MD
--- NOTE | 2018-12-13 11:45 | DCINST_ITS ---
- Discharge Diagnoses Current Active Problems: Current Active and Chronic Problems Chest pain (Acute) Depression (Chronic) Nicotine abuse (Chronic) You will use the following diet at home:: Cardiac - Low fat/low cholesterol Discharge Activity: Return to Normal Activity Call your doctor if you observe: Shortness of breath, Dizziness, Fainting spells, Chest pain Allergies/Adverse Reactions: Allergies No Known Allergies Allergy (Unverified 08/17/18 18:01) Medications to take at Discharge Bupropion HCl [Bupropion HCl Sr] 150 mg PO BID 12/11/18 Primary Care Physician: Gaston Hudson MD [NON-STAFF] - Please follow up with your Primary Care Physician in: 1 Week Test Results: Test results from this visit will be discussed in further detail at your follow- up appointment, if applicable. Please Follow Up With: Jg Antunez MD When: May see LEARNING DISABILITIES TEACHER/PA, 2-4 weeks Proposed Discharge Date: 12/13/18
--- NOTE | 2018-12-13 11:46 | PCM.DC.SUM ---
<Bev Amato - Last Filed: 12/13/18 11:54> Discharge Date and Diagnosis Date of Admission: 12/11/18 Date of Discharge: 12/13/18 - Primary Discharge Diagnosis Active and Suspected Problems 1. Chest pain, abnormal stress test-ACS/CAD ruled out 2. Syncopal episode, unclear etiology 3. History of tobacco use 4. Hyperlipidemia - Secondary Discharge Diagnosis Chronic Problems Depression (Chronic) Nicotine abuse (Chronic) Hospital Course and Treatment Imaging Results: Diagnostic Data Chest X-Ray 12/11/18 15:30 IMPRESSION: No acute thoracic pathology. Electronically Signed: Conor Up, at 16:07 EDT Tel , Service support , Dr. Marquez/Dr. Antunez- Cardiology Operations: None Procedures: 2-D Echocardiogram, Cardiac catheterization, Stress test Summary of Care Provided: The patient is a 62 year old F admitted 12/11/2018 due to chest pain. 1. Chest pain, abnormal stress test-ACS/CAD ruled out. Troponin negative. Patient had abnormal stress test and cardiology was consulted. She further underwent cardiac catheterization which showed normal coronary arteries. Echocardiogram demonstrated EF 55%, no evidence of diastolic dysfunction. Trivial mitral and tricuspid valve insufficiency. D-dimer negative. Chest x-ray unremarkable. Follow-up with primary care physician in 1 week. Follow-up with cardiology in 2 to 4 weeks. May not need routine follow-up with cardiology given normal cardiac catheterization however will decide this at outpatient follow-up. 2. Syncopal episode, unclear etiology-cardiac work-up unremarkable as noted above. Check orthostatic vitals prior to discharge. 3. History of tobacco use-encouraged cessation. 4. Hyperlipidemia-total cholesterol 256, LDL 161. Patient wishes to try dietary modification prior to initiating statin. Recommend repeat lipid panel in 4 to 6 weeks. General: Alert, Oriented x3, Cooperative HEENT: Atraumatic, PERRLA, EOMI, Normocephalic Neck: Supple, No JVD, Negative Carotid Bruits Lungs: Clear to auscultation, Normal air movement Cardiovascular: Regular rate, No murmurs Abdomen: Bowel Sounds Present, Soft, Non Tender Extremities: No edema, Capillary Refill Less than 3 Seconds Skin: No rashes, No breakdown Musculoskeletal: No Tenderness to Palpation of Joints or Extremities Neurological: Cranial nerves II-XII grossly intact Psych/Mental Status: Normal Affect, Appropriate, Alert and oriented to time, place, person, mood and affect Patient seen and examined prior to discharge. Physical assessment as noted above. Patient is stable for discharge with follow up recommendations as noted above. This patient was seen by GIDEON Salter under the supervision of Dr. Lindquist. - Physical Exam Vital Signs Temp Pulse Resp BP Pulse Ox 98.2 F 79 16 127/87 H 95 12/13/18 09:05 12/13/18 09:50 12/13/18 09:50 12/13/18 09:50 12/13/18 09:50 Oxygen Delivery Method Room Air Weight: 114 lb 10.246 oz Body Mass Index (BMI) 24.0 Intake and Output for Last 24 Hours 12/11/18 12/12/18 12/13/18 23:59 23:59 23:59 Intake Total 872.5 / 872.5 730 / 730 100 / 100 Balance 872.5 / 872.5 730 / 730 100 / 100 Discharge Diet: Low fat/ Low Cholesterol Discharge Activity: Return to Normal Activity Call your doctor if you observe: Shortness of breath, Dizziness, Fainting spells, Chest pain Home Medications: Medications to take at Discharge Bupropion HCl [Bupropion HCl Sr] 150 mg PO BID 12/11/18 Primary Care Physician: Gaston Hudson MD [NON-STAFF] - Please follow up with your Primary Care Physician in: 1 Week Please Follow Up With: Jg Antunez MD When: May see [facility] SAMPLE/PA, 2-4 weeks Disposition: Home Minutes spent on discharge:: 35 Patient Condition:: Stable Medical Necessity - Tobacco Use Smoking Status: Current some day smoker Tobacco Use: Cigarettes Meaningful Use Info Meaningful Use Diagnoses (Choose all that apply): None applicable <Korey Lindquist - Last Filed: 12/13/18 12:19> Discharge Date and Diagnosis - Secondary Discharge Diagnosis Chronic Problems Depression (Chronic) Nicotine abuse (Chronic) Hospital Course and Treatment Summary of Care Provided: This patient was seen in conjunction with GIDEON Salter . I have independently interviewed and examined the patient and reviewed pertinent historical, laboratory, and other data. Please refer to GIDEON Salter note for details of this patient's presentation, findings, and recommendations. I have reviewed GIDEON Salter note and concur with documented findings. In brief, patient is a 62-year-old lady who presented with chest pain. Patient had experienced syncopal episode 2 days prior to admission. Placed on a monitored bed underwent a nuclear stress test which was positive for stress-induced ischemia consult subsequently placed to cardiology. Patient underwent left heart catheterization on 12/13/2018 which failed to demonstrate any hemodynamically significant obstructive lesions. Discharge home instructed to follow-up with PCP Assessment: 1. Chest Pain 2. Abnormal stress test 3. Syncope Episode 4. 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 DVT prophylaxis Hospital course: As documented above - Physical Exam Vital Signs Temp Pulse Resp BP Pulse Ox 98.2 F 74 18 134/80 H 97 12/13/18 09:05 12/13/18 11:55 12/13/18 10:20 12/13/18 11:55 12/13/18 10:20 Oxygen Delivery Method Room Air Weight: 52 kg Body Mass Index (BMI) 24.0 Orthostatic Vital Signs Start: 12/13/18 11:55 Freq: q24h Status: Active Protocol: Activity Type Activity Date Activity User E-Sign Co-Sign Detail Recorded Client Recorded Date Recorded By Document 12/13/18 11:55 ANG [id number] 12/13/18 11:59 ANG 12/13/18 11:55 Orthostatic Vitals Standing -Blood Pressure (90/60-120/80) 130/89 H -Extremity Use Right Arm -Pulse Rate (60-100) 85 Sitting -Blood Pressure (90/60-120/80) 147/93 H -Extremity Use Right Arm -Pulse Rate (60-100) 86 Lying -Blood Pressure (90/60-120/80) 134/80 H -Extremity Use Right Arm -Pulse Rate (60-100) 74 Intake and Output for Last 24 Hours 12/11/18 12/12/18 12/13/18 23:59 23:59 23:59 Intake Total 872.5 / 872.5 730 / 730 700 / 700 Balance 872.5 / 872.5 730 / 730 700 / 700 Code Visit OBSV E&M: 29255 Observation care discharge
[2018-12-13] MEDS: buPROPion (SR) 150 MG Tablet.SA PO (11:48)
[2018-12-13] MEDS: Acetaminophen 325 MG Tablet 650 MG PO (11:54)
--- NOTE | 2018-12-13 11:59 | PCM.WORK.EX ---
Work/School Excuse Work/School Excuse for:: Patient Please excuse this person from:: Work From: 12/11/18 through: 12/16/18 - May return 12/17/18
== END 2018-12-13 08:52 | disposition home or self-care (01) ==
LOC: ED 15:26 → PCU 12-12 06:51
PROVIDERS: Physician Assistant; Admitting Provider Internal Medicine; Emergency Provider Emergency Medicine; Family Provider Family Medicine; PCP Family Medicine; Referring Provider Internal Medicine; Visit Provider Internal Medicine
DX: R07.89 Other chest pain (principal); R55 Syncope and collapse; R94.39 Abnormal result of other cardiovascular function study; I08.1 Rheumatic disorders of both mitral and tricuspid valves; E78.5 Hyperlipidemia, unspecified; F32.9 Major depressive disorder, single episode, unspecified; F17.210 Nicotine dependence, cigarettes, uncomplicated; Z79.899 Other long term (current) drug therapy; Z82.49 Family history of ischemic heart disease and other diseases of the circulatory system
CPT/HCPCS: 36415; 71045; 78452; 80048; 80061; 84484; 85025; 85379; 93005; 93017; 93306; 93458; 96372; 99152; 99153; 99218; 99285; 99406; A9500; J7030; Q9967; A4216; C1769; C1894; G0378

== ENCOUNTER → 2020-03-25 | Outpatient (CLI) | payer OTHER, SELFPAY ==
[2019-01-18 13:44] VITALS: BMI 24.2
[2020-03-25 15:11] LABS: D-Dimer Quantitative (DVT/PE) 0.48 FEU/ug/m (0.27-0.49)
== END | disposition home or self-care (01) ==
LOC: LABSPEC 13:47
PROVIDERS: PCP Family Medicine; Referring Provider Family Medicine; Visit Provider Family Medicine
DX: R07.9 Chest pain, unspecified (principal)
CPT/HCPCS: 85379

== ENCOUNTER 2020-06-04 14:41 | Outpatient (RCR) | payer OTHER, SELFPAY ==
[2019-01-18 13:44] VITALS: BMI 24.2
[2020-06-04] MEDS: COVID-19 VACC, MRNA(PFIZER)/PF 30 MCG/0.3 ML SYRINGE IM (13:44)
[2020-06-25] MEDS: COVID-19 VACC, MRNA(PFIZER)/PF 30 MCG/0.3 ML SYRINGE IM (13:36)
== END 2020-06-04 23:59 ==
LOC: IMMUN 14:41
PROVIDERS: PCP Family Medicine; Visit Provider Family Medicine
DX: Z23 Encounter for immunization (principal)
CPT/HCPCS: 0001A; 0002A; 91300

== ENCOUNTER 2021-07-08 22:04 | Emergency (ER) | payer OTHER, SELFPAY ==
[2021-07-08 22:06] VITALS: BP 193/103; PULSE 74; RESP 16; TEMP 36.4; O2SAT 100; BMI 23.3
--- NOTE | 2021-07-08 22:23 | EDS_ITS ---
HPI History of Present Illness Chief Complaint: Abd Pain Informant: patient Onset/Context/Timing Onset: Days Context: Gradual Onset Current Severity: Mild Maximum Severity: Moderate Narrative Narrative: Patient presents secondary to upper abdominal pain with nausea. For the past week she is been having some upper abdominal discomfort with nausea. She denies vomiting. She is had chills but no fever. She had decreased appetite and therefore decreased p.o. intake. She is had decreased bowel movements. Only prior abdominal surgery was a tubal ligation. [facility] Medical History (Updated 07/08/21 @ 23:[address] Jamila Lee MD) Chest pain Depression History of left heart catheterization (12/13/18) History of migraine Hyperlipidemia Nicotine abuse Osteoporosis Syncope Yeast vaginitis Home Medications bupropion HCl 150 mg PO BID 12/11/18 [History Last Taken 12/11/18] hypnhys-uscxmnbrxlnse-shaisnbt 250 mg-250 mg-65 mg tablet 2 tab PO DAILY PRN tab 01/18/19 [History Last Taken Unknown] biotin 1 mg tablet 1 mg PO DAILY 01/18/19 [History Last Taken Unknown] calcium carbonate 500 mg calcium (1,250 mg) tablet 500 mg PO DAILY 01/18/19 [History Last Taken Unknown] estradiol 1 g VAGINAL 2XW 01/18/19 [History Last Taken Unknown] fexofenadine 180 mg tablet 180 mg PO DAILY PRN 01/18/19 [History Last Taken Unknown] magnesium oxide 400 mg (241.3 mg magnesium) tablet 400 mg PO DAILY 01/18/19 [History Last Taken Unknown] vitamin E (dl, acetate) 180 mg (400 unit) capsule 400 unit PO DAILY 01/18/19 [History Last Taken Unknown] zinc 50 mg tablet 50 mg PO DAILY PRN 01/18/19 [History Last Taken Unknown] omeprazole magnesium [Prilosec OTC] 20 mg PO DAILY #20 tab 07/08/21 [Rx Last Taken Unknown] ondansetron 4 mg PO Q8H PRN #10 tab 07/08/21 [Rx Last Taken Unknown] Allergy/AdvReac Type Severity Reaction Status Date / Time No Known Allergies Allergy Unverified 07/08/21 22:07 Family History Mother Heart disease Osteoporosis Father Heart disease Kidney disease Grandmother , Age 47 Heart disease Surgical History History of hand surgery History of hip replacement History of hip surgery History of surgical removal of ganglion cyst Social History Smoking Status: Never smoker alcohol intake: current alcohol intake frequency: a few times a week substance use type: does not use caffeine: Yes Type: carbonated beverages and coffee Number of servings: 3 ROS ROS ED Constitutional Constitutional ED: Reports chills; Denies fever(s) Eyes Eyes: Denies change in vision ENT ENT ED: Denies sore throat Cardiovascular Cardiovascular: Denies chest pain Respiratory/Chest Respiratory/Chest: Denies cough or dyspnea Gastrointestinal Gastrointestinal: Reports abdominal pain and nausea; Denies diarrhea or vomiting Genitourinary Genitourinary ED: Denies dysuria Musculoskeletal Musculoskeletal: Denies back pain Integumentary Denies rash Neurologic Neurologic: Denies headache(s) or weakness Allergic/Immunologic Allergic/Immunologic ED: Denies urticaria EXAM Physical Exam Const Vital Signs: 07/08/21 22:06 07/08/21 22:27 Temperature 97.6 F L Temperature Source Temporal Pulse Rate 74 Respiratory Rate 16 Blood Pressure 193/103 H 166/97 H Blood Pressure Mean 133 120 Pulse Ox 100 Oxygen Delivery Method Room Air Positive well nourished and well developed General Appearance ED: well developed HEENT Reports moist mucous membranes Eyes PERRL and EOMs intact bilaterally Neck supple Chest Wall inspection of chest normal and palpation of chest normal Resp normal respiratory effort and clear to auscultation bilaterally Cardio regular rate and regular rhythm GI non-tender Auscultation: hypoactive bowel sounds Palpation: soft Extremity normal to inspection Neuro oriented x3 Sensorium / Orientation: alert Psych mental status grossly normal Skin no rashes or lesions noted MDM MDM MDM Narrative Medical decision making narrative: Patient given IV fluids along with a dose of Pepcid. Lab work obtained. Lab Data Attestation: I reviewed the patient's lab results. Labs: Laboratory Results - last 24 hr 07/08/21 07/08/21 07/08/21 22:20 22:30 22:30 WBC 5.3 RBC 4.06 L Hgb 13.7 Hct 41.2 MCV 101.5 H MCH 33.7 H MCHC 33.3 RDW Std Deviation 45.1 H RDW Coeff of Tony 12.0 Plt Count 209 MPV 9.4 Immature Gran % (Auto) 0.600 Neut % (Auto) 66.4 Lymph % (Auto) 18.9 L Campbell % (Auto) 10.9 H Eos % (Auto) 2.8 Baso % (Auto) 0.4 Absolute Neuts (auto) 3.5 Absolute Lymphs (auto) 1.00 Nucleated RBC % 0 Sodium 135 L Potassium 3.2 L Chloride 101 Carbon Dioxide 25.0 Anion Gap 9 BUN 11 Creatinine 0.75 Estim Creat Clear Calc 61.57 Est GFR (MDRD) Af Amer 101 Est GFR (MDRD) Non-Af 83 BUN/Creatinine Ratio 14.7 Glucose 149 H Calcium 9.2 Total Bilirubin 0.80 Direct Bilirubin 0.22 AST 62 H ALT 77 H Alkaline Phosphatase 58 Total Protein 8.2 Albumin 4.3 Globulin 3.9 Lipase 175 Urine Color Straw Urine Clarity Clear Urine pH 6.5 Ur Specific [place] 1.010 Urine Protein Negative Urine Glucose (UA) Normal Urine Ketones 5 H Urine Occult Blood Negative Urine Nitrite Negative Urine Bilirubin Negative Urine Urobilinogen Normal Ur Leukocyte Esterase 500 H Urine RBC 0 SEEN Urine WBC 0-5 SEEN Ur Squamous Epith Cells 0 SEEN Urine Bacteria RARE Urine Mucus 0 SEEN Treatment and Re-Evaluation Narrative: CBC unremarkable. Chemistry studies significant only for slightly low potassium at 3.2. LFTs reveal AST of 62 and ALT of 77. Lipase normal. Bilirubin is normal. Urinalysis reveals no infection. Only 5 ketones noted. Repeat evaluation patient resting comfortably. Repeat blood pressure is 151 systolic. Patient is given potassium replacement here orally. She will be given prescriptions for Prilosec and Zofran. Return instructions given. Discharge Plan Triage Chief Complaint: Abd Pain ED Provider: Jaimla Lee Dx/Rx/DC Orders Clinical Impression: Gastritis Instructions: ED Gastritis (Adult) Prescriptions: New ondansetron 4 mg tablet,disintegrating 4 mg PO Q8H PRN (Reason: nausea and vomiting) Qty: 10 RF: 0 omeprazole magnesium [Prilosec OTC] 20 mg tablet,delayed release (DR/EC) 20 mg PO DAILY Qty: 20 RF: 0 No Action estradiol 0.01 % (0.1 mg/gram) cream 1 g VAGINAL 2XW RF: 0 zinc 50 mg tablet 50 mg PO DAILY PRNRF: 0 biotin 1 mg tablet 1 mg PO DAILY RF: 0 magnesium oxide 400 mg (241.3 mg magnesium) tablet 400 mg PO DAILY RF: 0 calcium carbonate [Calcium 500] 500 mg calcium (1,250 mg) tablet 500 mg PO DAILY RF: 0 vitamin E (dl, acetate) 400 unit capsule 400 unit PO DAILY RF: 0 fexofenadine [Allergy Relief (fexofenadine)] 180 mg tablet 180 mg PO DAILY PRNRF: 0 Excedrin Extra Strength 250-250-65 mg tablet 2 tab PO DAILY PRNRF: 0 bupropion HCl 150 MG tablet sustained-release 12 hr 150 mg PO BID RF: 0 Primary Care Provider: Gabo Henderson Referrals: Gabo Henderson MD [Primary Care Provider] - 1-2 Weeks Disposition Disposition: Home, Self Care
[2021-07-08 22:27] VITALS: BP 166/97
[2021-07-08] MEDS: Famotidine 200 MG/20 ML MDV 20 MG in 0.9% Normal Saline (Pres. free 8 ML 300 MG IV (22:39)
[2021-07-08 22:45] LABS: Mucous, Urine 0 SEEN /hpf (<or=2+); Red Blood Cells-Urine 0 SEEN /hpf (0-5); Squamous Epithelial Cells - UA 0 SEEN /hpf (5-10)
[2021-07-08 22:46] LABS: Absolute Neutrophil Count 3.5 X10^3/uL (2.0-7.7); Basophil# 0.02 X10^3/uL; Basophil% 0.4 % (0-1); Eosinophil# 0.15 X10^3/uL; Eosinophils% 2.8 % (0-5); Hematocrit 41.2 % (37-47); Hemoglobin 13.7 g/dL (12.0-15.0); Lymphocyte % 18.9 % (19-41); Mean Corp Hgb Conc 33.3 g/dL (32-36); Mean Corpuscular Hgb 33.7 pg (27.0-32.0); Mean Corpuscular Volume 101.5 fL (81-99); Mean Platelet Vol. 9.4 fl (6.2-12.0); Monocyte# 0.58 X10^3/uL; Monocyte% 10.9 % (0-10); NRBC Flagged by Analyzer 0 % (0-5); Neutrophil # 3.52 X10^3/uL (2.7-7.7); Neutrophil % 66.4 % (47-70); Platelet Count 209 K/mm3 (150-450); RBC Distribution Width SD 45.1 fl (35.1-43.9); Red Blood Count 4.06 M/mm3 (4.2-5.4); White Blood Count 5.3 K/mm3 (4.4-11.0)
[2021-07-08 22:48] LABS: Color, Urine Straw (Yellow); Glucose, Dipstick Normal (Normal); Ketone-Dipstick 5 mg/dl (Negative); Leukocyte Esterase-Dipstick 500 /ul (Negative); Nitrite-Dipstick Negative (Negative); Occult Blood-Urine Negative /ul (Negative); Protein-Dipstick Negative (Negative); Urine Bilirubin Dipstick Negative (Negative); Urine Clarity Clear (Clear); Urine Urobilinogen Normal (Normal); Urine pH 6.5 (5.0 - 8.0)
[2021-07-08 23:03] LABS: AST(SGOT) 62 U/L (15-37); Alanine Aminotransfer ALT/SGPT 77 U/L (13-56); Albumin, Serum 4.3 g/dL (3.2-5.0); Alkaline Phosphatase 58 U/L (45-117); Anion Gap 9 (5-15); BUN 11 mg/dL (7-18); BUN/Creat Ratio 14.7 RATIO (10-20); Bilirubin, Direct 0.22 mg/dL (0.00-0.30); Calcium,Total 9.2 mg/dL (8.5-10.1); Chloride 101 mmol/L (98-107); Creatinine, Serum 0.75 mg/dL (0.55-1.02); EST Glomerular Filtration Rate 83 mL/min (>60); Est Glom Filt Rate - Afr Amer 101 mL/min (>60); Estimated Creatinine Clearance 61.57 ml/min; Globulin 3.9 g/dL (2.2-4.2); Glucose 149 mg/dL (74-106); Lipase 175 U/L (73-393); Potassium 3.2 mmol/L (3.5-5.1); Protein, Total 8.2 g/dL (6.4-8.2); Sodium Level 135 mmol/L (136-145)
[2021-07-08 23:07] LABS: Bacteria RARE /hpf (None Seen); White Blood Cells 0-5 SEEN /hpf (0-5)
[2021-07-08] MEDS: Potassium Chloride Oral Tablet 20 MEQ 40 MEQ PO (23:21)
[2021-07-08] MEDS: Ondansetron 4 MG/2 ML Vial IV (23:21)
== END 2021-07-08 23:29 | disposition home or self-care (01) ==
PROVIDERS: Emergency Provider Emergency Medicine; PCP Family Medicine; Visit Provider Emergency Medicine
DX: K29.70 Gastritis, unspecified, without bleeding (principal); F32.A Depression, unspecified; E78.5 Hyperlipidemia, unspecified; M81.0 Age-related osteoporosis without current pathological fracture; Z79.899 Other long term (current) drug therapy; Z79.82 Long term (current) use of aspirin
CPT/HCPCS: 80048; 80076; 81001; 83690; 85025; 96365; 96375; 99284; J2405; J3490

== ENCOUNTER 2022-02-28 12:05 | Emergency (ER) | payer OTHER, SELFPAY ==
[2022-02-28 12:06] VITALS: BP 112/87; PULSE 84; RESP 18; TEMP 36.6; O2SAT 99; BMI 22.1
--- NOTE | 2022-02-28 14:23 | CT_ITS ---
STUDY: CT BRAIN WITHOUT CONTRAST REASON FOR EXAM: Female, 66 years old. Head injury due to a fall. RADIATION DOSAGE (If Supplied By Facility): CTDIvol = ( 44.99 ) mGy, DLP = ( 762.36 ) mGycm TECHNIQUE: Transaxial CT imaging of the brain was performed without administration of intravenous contrast material. Individualized dose optimization techniques were used for this CT. COMPARISON: No relevant priors. FINDINGS: Metallic artifact overlying the left temporal bone most likely from a previous seen in the left ear.Normal calvarium. Normal size ventricles and extra-axial spaces for the patient''s age. Normal white matter tracts of the cerebral hemispheres. Normal basal ganglia and thalami. Normal brainstem. Normal cerebellum. There is no intracranial hemorrhage. There are no findings of an acute ischemic infarction. Atherosclerotic calcification of the cavernous portions of the internal carotid arteries bilaterally. Normal visualized paranasal sinuses. CT/Brain/Head without Contrast IMPRESSION: No acute abnormality is seen. Electronically Signed: Rashad Robledo MD at 15:20 EST ,
[2022-02-28] MEDS: Morphine 4 MG/ML Syringe IM (14:31)
--- NOTE | 2022-02-28 14:32 | EX.ED.UPPERE ---
HPI History of Present Illness Chief Complaint: Upper Extremity Injury Informant: patient Narrative Narrative: Patient is a 66-year-old female with history of osteoporosis, migraines, hyperlipidemia and depression presenting for further evaluation of right shoulder injury. Patient is right-hand dominant. Last night around 9 or 10 PM she was climbing up on a cabinet to get a container from the upper cabinets. She somehow lost her balance and fell. She landed on the floor onto her right shoulder. She thinks she might of hit her forehead on the counter tops which are made of [place]. Denies any loss of conscious. Denies any numbness or tingling in her hands. Has pain at her right shoulder. Went to urgent care where they did x-rays of the right shoulder. X-ray showed a comminuted fracture of the right humeral head and neck with angulation. There is glenohumeral joint space widening. Nurse practitioner at the urgent care spoke to orthopedics who recommended patient come in through the ER to be admitted for surgical repair at [facility]. [facility] is out of network for the patient so she elected to come here. She denies thing for pain today besides ibuprofen. Has no other complaints at this time. Is not on any blood thinners. [facility] Medical History (Updated 02/28/22 @ 18:[address] Jenna Frances, ) Chest pain Depression History of left heart catheterization (12/13/18) History of migraine Hyperlipidemia Nicotine abuse Osteoporosis Syncope Yeast vaginitis Home Medications bupropion HCl 150 mg tablet,12 hr sustained-release 150 mg PO BID depression 12/11/18 [History Last Taken 12/11/18] gbvzcsf-ceeciwlwcsmhi-gsdbqopo 250 mg-250 mg-65 mg tablet (Excedrin Extra Strength) 2 tab PO DAILY PRN 01/18/19 [History Last Taken Unknown] biotin 1 mg tablet 1 mg PO DAILY 01/18/19 [History Last Taken Unknown] calcium carbonate 500 mg calcium (1,250 mg) tablet (Calcium 500) 500 mg PO DAILY 01/18/19 [History Last Taken Unknown] estradiol 0.01% (0.1 mg/gram) vaginal cream 1 g vaginal 2XW 01/18/19 [History Last Taken Unknown] fexofenadine 180 mg tablet (Allergy Relief (fexofenadine)) 180 mg PO DAILY PRN 01/18/19 [History Last Taken Unknown] magnesium oxide 400 mg (241.3 mg magnesium) tablet 400 mg PO DAILY 01/18/19 [History Last Taken Unknown] vitamin E (dl, acetate) 180 mg (400 unit) capsule 400 unit PO DAILY 01/18/19 [History Last Taken Unknown] zinc 50 mg tablet 50 mg PO DAILY PRN 01/18/19 [History Last Taken Unknown] omeprazole magnesium 20 mg tablet,delayed release (Prilosec OTC) 20 mg PO DAILY #20 tabs 07/08/21 [Rx Last Taken Unknown] ondansetron 4 mg disintegrating tablet 4 mg PO Q8H PRN nausea and vomiting #10 tabs 07/08/21 [Rx Last Taken Unknown] hydrocodone-acetaminophen 5-325mg 5mg-325mg 1 tab PO Q6H PRN pain 3 days #12 tabs 02/28/22 [Rx Last Taken Unknown] Allergy/AdvReac Type Severity Reaction Status Date / Time No Known Allergies Allergy Verified 02/28/22 12:06 Family History Mother Heart disease Osteoporosis Father Heart disease Kidney disease Grandmother , Age 47 Heart disease Surgical History History of hand surgery History of hip replacement History of hip surgery History of surgical removal of ganglion cyst Social History Smoking Status: Never smoker alcohol intake: current alcohol intake frequency: a few times a week substance use type: does not use caffeine: Yes Type: carbonated beverages and coffee Number of servings: 3 ROS ROS ED Constitutional Constitutional ED: Denies chills or fever(s) Eyes Eyes: Denies blurry vision or change in vision ENT ENT ED: Denies rhinorrhea or sore throat Cardiovascular Cardiovascular: Denies chest pain Respiratory/Chest Respiratory/Chest: Denies cough or dyspnea Gastrointestinal Gastrointestinal: Denies nausea or vomiting Musculoskeletal Musculoskeletal: Reports other Details: right shoulder pain ; Denies back pain or neck pain Integumentary Denies Abrasions or rash Neurologic Neurologic: Denies headache(s), paresthesias or weakness Psychiatric Psychiatric: Denies anxiety or depression Hematologic/Lymphatic Hematologic/Lymphatic: Denies easy bleeding or easy bruising EXAM Physical Exam Const Vital Signs: 02/28/22 12:06 Temperature 97.9 F Temperature Source Temporal Pulse Rate 84 Respiratory Rate 18 Blood Pressure 112/87 H Blood Pressure Mean 95 Pulse Ox 99 Oxygen Delivery Method Room Air Positive well nourished and well developed General Appearance ED: well developed and NAD HEENT Reports moist mucous membranes HEENT Narrative: Cerumen impaction of the right ear. Normal left panic membrane with no hemotympanum. normocephalic and atraumatic Eyes PERRL and EOMs intact bilaterally Neck full ROM and supple Chest Wall inspection of chest normal and palpation of chest normal Resp normal respiratory effort and clear to auscultation bilaterally Cardio regular rate, regular rhythm and no murmurs Cardio Narrative: 2+ bilateral radial pulses GI non-tender and non-distended Back/Spine no CVA tenderness Extremity Extremity Narrative: Decreased range of motion of the right shoulder. Arm is in a sling. Tenderness palpation of the right shoulder. No tenderness palpation of the clavicle or distal arm. Intrinsic and extrinsic hand movements intact. Neuro oriented x3, no focal motor deficits and no sensory deficits noted Motor Exam: muscle tone normal throughout Psych mental status grossly normal Skin Trauma: no lacerations or abrasions MDM MDM MDM Narrative Medical decision making narrative: Patient evaluated for right humerus fracture. There was concern the patient would need more emergent surgical intervention so she was sent to our ER as [facility] is out of network for the patient. Xray from [facility] reviewed and discussed with Dr. Oneill, hotel operations manager ortho hear. He agrees that patient requires more urgent surgical repair however we do not have upper extremity specialist here to do the surgery. I spoke with hotel operations manager ortho at [place], Dr. Das, who recommended a CT of the shoulder after review of the plain films. He agreed that patient likely will require reverse total shoulder for repair however he does not think she needs to be emergently transferred if there is no dislocation. If CT is negative she can be discharged in a sling with outpatient follow-up. CT obtained which is negative. Patient be discharged for follow-up with Dr. Sánchez Daily. Patient is given this information. She has adequate pain control in the ER. Is discharged home with a prescription for [place] as well as return precautions. Counseled to use MiraLAX to prevent opioid-induced constipation. Patient is neuro vastly intact at time of disposition. Discharge Plan Triage Chief Complaint: Upper Extremity Injury ED Provider: Jenna Frances Dx/Rx/DC Orders Clinical Impression: Comminuted right humeral fracture, Acute pain of right shoulder Instructions: ED Fracture, Upper Extremity, ED Sling Prescriptions: New hydrocodone-acetaminophen 5-325 mg tablet 1 tab PO Q6H PRN (Reason: pain) 3 Days Qty: 12 0RF No Action estradiol 0.01 % (0.1 mg/gram) cream 1 g VAGINAL 2XW zinc 50 mg tablet 50 mg PO DAILY PRN biotin 1 mg tablet 1 mg PO DAILY magnesium oxide 400 mg (241.3 mg magnesium) tablet 400 mg PO DAILY calcium carbonate [Calcium 500] 500 mg calcium (1,250 mg) tablet 500 mg PO DAILY vitamin E (dl, acetate) 400 unit capsule 400 unit PO DAILY fexofenadine [Allergy Relief (fexofenadine)] 180 mg tablet 180 mg PO DAILY PRN Excedrin Extra Strength 250-250-65 mg tablet 2 tab PO DAILY PRN bupropion HCl 150 MG tablet sustained-release 12 hr 150 mg PO BID Label Comments: TAKE 1 TABLET BY MOUTH TWICE A DAY ondansetron 4 mg tablet,disintegrating 4 mg PO Q8H PRN (Reason: nausea and vomiting) Qty: 10 0RF omeprazole magnesium [Prilosec OTC] 20 mg tablet,delayed release (DR/EC) 20 mg PO DAILY Qty: 20 0RF Primary Care Provider: Gabo Henderson Referrals: Gabo Henderson MD [Primary Care Provider] - Activity Restrictions/Additional Instructions: Please follow up with Dr. Gonzalo Neumann M.D at . Call tomorrow and let them know that you were seen in the ER today and told that you need very close outpatient follow-up for comminuted proximal humerus fracture that will require surgery per the on-call orthopedist Disposition Disposition: Home, Self Care
--- NOTE | 2022-02-28 15:36 | NURSING ---
CALLED [facility] FOR TRANSFER
--- NOTE | 2022-02-28 15:47 | NURSING ---
[facility] TRAUMA LINE [phone] CALLED AND THEY WILL PAGE OUT THEIR ORTHO
[2022-02-28 15:50] VITALS: BP 114/66; PULSE 78; RESP 14; O2SAT 96
[2022-02-28 15:58] LABS: Absolute Lymphocyte Count 1.05 X10^3/uL (0.83-4.51); Absolute Neutrophil Count 7.2 X10^3/uL (2.0-7.7); Basophil# 0.02 X10^3/uL; Basophil% 0.2 % (0-1); Hematocrit 35.9 % (37-47); Hemoglobin 11.6 g/dL (12.0-15.0); Lymphocyte # 1.05 X10^3/ul (0.83-4.51); Lymphocyte % 11.4 % (19-41); Mean Corp Hgb Conc 32.3 g/dL (32-36); Mean Corpuscular Hgb 32.9 pg (27.0-32.0); Mean Corpuscular Volume 101.7 fL (81-99); Mean Platelet Vol. 9.3 fl (6.2-12.0); Monocyte# 0.94 X10^3/uL; Monocyte% 10.2 % (0-10); NRBC Flagged by Analyzer 0 % (0-5); Neutrophil # 7.18 X10^3/uL (2.7-7.7); Neutrophil % 77.9 % (47-70); Platelet Count 235 K/mm3 (150-450); RBC Distribution Width CV 12.6 % (11.6-14.6); RBC Distribution Width SD 47.2 fl (35.1-43.9); Red Blood Count 3.53 M/mm3 (4.2-5.4); White Blood Count 9.2 K/mm3 (4.4-11.0)
[2022-02-28 16:16] LABS: International Normalized Ratio 1.1; Prothrombin Time (Protime)PT. 13.7 SECONDS (11.7-14.9)
[2022-02-28 16:17] LABS: Partial Thromboplast Time 25.6 Seconds (24.1-36.2)
[2022-02-28 16:19] LABS: Anion Gap 7 (5-15); BUN 14 mg/dL (7-18); BUN/Creat Ratio 19.7 RATIO (10-20); Chloride 105 mmol/L (98-107); Creatinine, Serum 0.71 mg/dL (0.55-1.02); EST Glomerular Filtration Rate 88 mL/min (>60); Est Glom Filt Rate - Afr Amer 107 mL/min (>60); Estimated Creatinine Clearance 60.76 ml/min; Glucose 101 mg/dL (74-106); Sodium Level 139 mmol/L (136-145)
--- NOTE | 2022-02-28 16:34 | NURSING ---
ORTHO DR HANNAH CHO FOR DR TAYLOR
--- NOTE | 2022-02-28 16:37 | CT_ITS ---
CT of the right shoulder without contrast INDICATION: Fall, fracture, pain. TECHNIQUE: Multiple thin section axial CT images of the right shoulder were obtained without the administration of intravenous contrast and filmed in soft tissue and bone windows. Furthermore, multiple sagittal and coronal reconstructions were performed. Dose limiting techniques were utilized. FINDINGS: No abnormal soft tissue mass, lymphadenopathy or fluid collection. Acute laterally displaced comminuted fracture of the humeral head and neck. CT/Extremity Upper without Contra IMPRESSION: Acute comminuted laterally displaced fracture of the humeral head and neck. Electronically Signed: Ravin Elmore MD at 17:18 EST ,
[2022-02-28] MEDS: Morphine 4 MG/ML Syringe IV (16:50)
[2022-02-28 17:10] VITALS: O2SAT 95
[2022-02-28] MEDS: HYDROcodone Bitartrate/Apap 5/325 Tablet PO (18:54)
== END 2022-02-28 19:26 | disposition home or self-care (01) ==
PROVIDERS: Emergency Provider Emergency Medicine; PCP Family Medicine; Visit Provider Emergency Medicine
DX: S42.351A Displaced comminuted fracture of shaft of humerus, right arm, initial encounter for closed fracture (principal); W19.XXXA Unspecified fall, initial encounter
CPT/HCPCS: 70450; 73200; 80048; 85025; 85610; 85730; 96361; 96372; 96374; 99283; J7040; A4216

== ENCOUNTER 2022-07-26 16:00 | Outpatient (RCR) | payer OTHER, SELFPAY ==
--- NOTE | 2022-03-23 10:12 | HP.PTEVAL ---
Patient's Visit Information MERY DENISE is a 66 year old F referred to Physical Therapy by Dr. Fabio Uribe MD with a diagnosis of R reverse shoulder arthroplasty. Date of Evaluation: 03/22/22 Physical Therapist: Chester Burnham DPT - Visit Plan Frequency: 3x /Week Duration: 6 Weeks Plan: Start with ROM, progressing per protocol. Pt. did have increased edema in her forearm. Add in some lymphatic massage for edema. I did give her a compression sleeve, assess tolerance next visit. HEP today: pendulums, shoulder lise, shoulder walk away. I also want her to work on wrist and elbow AROM to increase muscle pump to reduce edema in forearm. - Subjective Pt. is here today for her initial evaluation with diagnosis of R Reverse total shoulder after sustaining a fracture. Pt. reports falling off her counter top resulting in a fracture needing a subsequent reverse total shoulder. DOS: 03/07/22. Pt. arrives today using sling as prescribed. Pt. reports overall doing okay, but is very reluctant to do much with her arm. She has been trying some pendulums, but reports not being able to be consistent very much. Pt. is having some pain with sleeping. She reports being in sling most of the day, except for bathing. Pt. works in [employer] at [employer]. She does mostly desk work. Pt. denies N/T, no fever, no chills. Pt. is having some swelling in her distal RUE, has been there since surgery. Pt. is hopeful to reduce symptoms and get back to all work and recreational activities without limitations. - Pain R shoulder Pain Intensity (Out of 10): 4 Pain Intensity Range: 2, 8 - Objective POSTURE: Pt. has R arm in guarded posture with arm at side. PALPATION: Pt. has well healing incision at anterior shoulder. She does have more than expected edema in distal R forearm 2+ pitting. Pt. reports being there since fall. Lack of wrist and elbow mobility most likely factoring in as well. NEURO: Pt. has normal sensation of BUEs. Pt. has normal DTR. ROM: L shoulder: flexion 170deg, and 170de, functional ER C7, functional IR L1. R shoulder: PROM: flexion 90deg, abd 70deg, ER in netural 10deg. Full R elbow ROM noted. MMT: RUE 5/5 throughout. MARIANNE: wrist 5/5, elbow and shoulder not tested. - Balance/Special Test Scores Quick DASH Score: 47.7250 - Goals Goal 1:: LTG: Pt. to be I with HEP. Goal Time Frame: 4-6 Weeks Goal 2:: STG: Pt. to be able to sleep throughout the night without increase in symptoms. Goal Time Frame: 2 Weeks Goal 3:: STG: Pt. to have increased R shoulder flexion to 130deg and ER to 30deg Goal Time Frame: 2-4 Weeks Goal 4:: LTG: Pt. to have full active R shoulder motion without increase in symptoms. Goal Time Frame: 4-6 Weeks Goal 5:: LTG: Pt. to have at least 10# of strength throughout R shoulder, scapular and periscapular strength. Goal Time Frame: 6-8 Weeks - Rehabilitation Potential Physical Therapy Diagnosis: Pt. has signs and symptoms consistent with R reverse shoulder arthroplasty after sustaining a fall and fracture. Pt. has marked hypomobility, increased edema, decreased strength, increased pain and decreased functional use of RUE. Pt. would benefit from PT to address the above limitations progressing back to all work and recreationally activities with out increase in symptoms. Rehabilitation Potential: Excellent - Anticipated Interventions Patient/Client Instruction: Educate patient on: Condition, Plan of Care, Risk Factors, Benefits of Fitness Program For the Purpose of:: To improve decision making, To facilitate caregiver knowledge, To improve self management, To prevent re-injury, To improve ability to perform tasks related to life management Therapeutic Exercise to Include: Strength training, Endurance training, Balance training, Coordination, Body mechanics, Postural training, Flexibilty training, Passive ROM, Active ROM For the Purpose of:: To decrease pain, To decrease swelling/inflammation, To increase ROM, To improve nutrient delivery to tissue, To increase oxygenation perfusion, To improve muscle performance and motor function, To improve ability to perform ADL's, To increase tolerance to activity/condition/position, To improve performance and independence with ADL's, To improve gait and locomotor functions, To improve health of tissue, To decrease soft tissue restriction, To increase flexibility/ROM Manual Therapy Techniques to Include: Massage, Mobilization, Passive ROM For the Purpose of:: To decrease pain, To decrease swelling/inflammation, To increase ROM, To improve nutrient delivery to tissue, To increase oxygenation perfusion, To improve muscle performance and motor function, To improve ability to perform ADL's, To increase tolerance to activity/condition/position, To improve health of tissue, To decrease soft tissue restriction, To increase flexibility/ROM Cryotherapy (ice pack, ice massage): Yes Vasopneumatic device: Yes For the Purpose of:: To decrease pain, To decrease swelling/inflammation, To increase ROM, To improve muscle performance and motor function, To decrease soft tissue restriction, To increase flexibility/ROM Thank you for the opportunity to evaluate your patient. For Medicare and Medicare HMO plans, please review the plan of care and approve it. It will need to be FAXED BACK to us at [phone] for Medicare purposes. For Medicare only, by signing this I certify the plan of care. Please let me know if there are questions or concerns regarding this plan of care. Physician Signature: Date:
--- NOTE | 2022-04-11 17:52 | HP.PTREVAL ---
Dr. Fabio Uribe MD, It has been my pleasure to treat MERY DENISE over the last 9 visits for R reverse shoulder arthroplasty. Please see the progress note below for an update on the physical therapy plan of care! Subjective: Seeing patient for re assessment today. Pt. reports overall improving. 3/10 pain today. Objective/Function: PT. has marked improvement. She continues to have increased edema in her biceps and forearm, but has improved. ROM: PROM: R shoulder: flexion 130deg, abd 120deg, ER at side 30deg. AROM: seated: flexion 75deg, ER at side 30deg. Functional IR: gluteal region. Pt. had a leathery to empty end feel. She has pain limiting further ROM. Pt. is overall still very apprehensive to move her arm. Pt. is progressing, but slowly. I talked to her about progressing into more ROM to increase stretching. Pt. consents. She is okay to start doing more wand, but still needs to stretch towards end range. Add in IR stretching to increase behind her back. Plan Plan: Start with ROM, progressing per protocol. Pt. did have increased edema in her forearm. Add in some lymphatic massage for edema. I did give her a compression sleeve, assess tolerance next visit. HEP today: pendulums, shoulder lise, shoulder walk away. I also want her to work on wrist and elbow AROM to increase muscle pump to reduce edema in forearm. Balance/Gait/Functional tests - Balance/Special Test Scores Quick DASH Score: 47.7250 Goals Goal 1:: LTG: Pt. to be I with HEP. Goal Time Frame: 4-6 Weeks Goal Progress: Progressing Goal 2:: STG: Pt. to be able to sleep throughout the night without increase in symptoms. Goal Time Frame: 2 Weeks Goal Progress: Progressing Goal 3:: STG: Pt. to have increased R shoulder flexion to 130deg and ER to 30deg Goal Time Frame: 2-4 Weeks Goal Progress: Progressing Goal 4:: LTG: Pt. to have full active R shoulder motion without increase in symptoms. Goal Time Frame: 4-6 Weeks Goal Progress: Progressing Goal 5:: LTG: Pt. to have at least 10# of strength throughout R shoulder, scapular and periscapular strength. Goal Time Frame: 6-8 Weeks Goal Progress: Progressing Anticipated Interventions Patient/Client Instruction: Educate patient on: Condition, Plan of Care, Risk Factors, Benefits of Fitness Program For the Purpose of:: To improve decision making, To facilitate caregiver knowledge, To improve self management, To prevent re-injury, To improve ability to perform tasks related to life management Therapeutic Exercise to Include: Strength training, Endurance training, Balance training, Coordination, Body mechanics, Postural training, Flexibilty training, Passive ROM, Active ROM For the Purpose of:: To decrease pain, To decrease swelling/inflammation, To increase ROM, To improve nutrient delivery to tissue, To increase oxygenation perfusion, To improve muscle performance and motor function, To improve ability to perform ADL's, To increase tolerance to activity/condition/position, To improve performance and independence with ADL's, To improve gait and locomotor functions, To improve health of tissue, To decrease soft tissue restriction, To increase flexibility/ROM Manual Therapy Techniques to Include: Massage, Mobilization, Passive ROM For the Purpose of:: To decrease pain, To decrease swelling/inflammation, To increase ROM, To improve nutrient delivery to tissue, To increase oxygenation perfusion, To improve muscle performance and motor function, To improve ability to perform ADL's, To increase tolerance to activity/condition/position, To improve health of tissue, To decrease soft tissue restriction, To increase flexibility/ROM Cryotherapy (ice pack, ice massage): Yes Vasopneumatic device: Yes For the Purpose of:: To decrease pain, To decrease swelling/inflammation, To increase ROM, To improve muscle performance and motor function, To decrease soft tissue restriction, To increase flexibility/ROM Please do not hesitate to contact me at [phone] by phone or if you have questions or concerns regarding this new plan of care! Sincerely, KYLE CarranzaT
--- NOTE | 2022-05-10 11:02 | HP.PTREVAL ---
Dr. Fabio Uribe MD, It has been my pleasure to treat PATY DENISE over the last 19 visits for R reverse shoulder arthroplasty. Please see the progress note below for an update on the physical therapy plan of care! Subjective: Pt. reports having 2-3/10 pain today. Pt. reports over all improving, but is concerned about her over head motion and her levels of pain. I talked to her about not over doing it, but having some expected soreness and that this is normal. Her ROM is progressing well. Objective/Function: Paty is progressing, she had a slightly slower progression initially due to increased edema, I am assuming from the trauma from the fall pre surgery. This has reduced, but she does have some hand stiffness and soreness. AAROM: flexion 142deg, abd: 135deg. PROM: flexion 161deg, abd 160deg, ER at 90deg 60deg, IR at 90deg 65deg. AROM: 131deg., abd 120deg, functional IR gluteal range, functional ER C4. MMT: shoulder flexion 4.1#, abd 7.7#, ER 5.6#, IR 5.8#- some increased pain with RUE testing. Overall she is improving as expected. She does substitue with over head motions. She is to work on this at home we will also address this. Plan Plan: Pt. to follow up with physician tomorrow. Pt. to be seen x2 per week for 4 weeks. Work on end range of PROM and progressing AROM. May change plans pending physician instruction. Balance/Gait/Functional tests - Balance/Special Test Scores Quick DASH Score: 47.7250 Goals Goal 1:: LTG: Pt. to be I with HEP. Goal Time Frame: 4-6 Weeks Goal Progress: Progressing Goal 2:: STG: Pt. to be able to sleep throughout the night without increase in symptoms. Goal Time Frame: 2 Weeks Goal Progress: Progressing Goal 3:: STG: Pt. to have increased R shoulder flexion to 130deg and ER to 30deg Goal Time Frame: 2-4 Weeks Goal Progress: Goal Met Goal 4:: LTG: Pt. to have full active R shoulder motion without increase in symptoms. Goal Time Frame: 4-6 Weeks Goal Progress: Progressing Goal 5:: LTG: Pt. to have at least 10# of strength throughout R shoulder, scapular and periscapular strength. Goal Time Frame: 6-8 Weeks Goal Progress: Progressing Anticipated Interventions Patient/Client Instruction: Educate patient on: Condition, Plan of Care, Risk Factors, Benefits of Fitness Program For the Purpose of:: To improve decision making, To facilitate caregiver knowledge, To improve self management, To prevent re-injury, To improve ability to perform tasks related to life management Therapeutic Exercise to Include: Strength training, Endurance training, Balance training, Coordination, Body mechanics, Postural training, Flexibilty training, Passive ROM, Active ROM For the Purpose of:: To decrease pain, To decrease swelling/inflammation, To increase ROM, To improve nutrient delivery to tissue, To increase oxygenation perfusion, To improve muscle performance and motor function, To improve ability to perform ADL's, To increase tolerance to activity/condition/position, To improve performance and independence with ADL's, To improve gait and locomotor functions, To improve health of tissue, To decrease soft tissue restriction, To increase flexibility/ROM Manual Therapy Techniques to Include: Massage, Mobilization, Passive ROM For the Purpose of:: To decrease pain, To decrease swelling/inflammation, To increase ROM, To improve nutrient delivery to tissue, To increase oxygenation perfusion, To improve muscle performance and motor function, To improve ability to perform ADL's, To increase tolerance to activity/condition/position, To improve health of tissue, To decrease soft tissue restriction, To increase flexibility/ROM Cryotherapy (ice pack, ice massage): Yes Vasopneumatic device: Yes For the Purpose of:: To decrease pain, To decrease swelling/inflammation, To increase ROM, To improve muscle performance and motor function, To decrease soft tissue restriction, To increase flexibility/ROM Please do not hesitate to contact me at [phone] by phone or if you have questions or concerns regarding this new plan of care! Sincerely, Chester Burnham DPT
== END 2022-07-26 19:00 | disposition home or self-care (01) ==
LOC: PT 16:00
PROVIDERS: PCP Family Medicine; Referring Provider Orthopaedic Surgery; Visit Provider Orthopaedic Surgery
DX: Z96.611 Presence of right artificial shoulder joint (principal)
CPT/HCPCS: 97110; 97140; 97161; 97164

== ENCOUNTER → 2024-03-22 | Outpatient (CLI) | payer MEDICARE, OTHER, SELFPAY ==
[2024-03-22 17:29] LABS: Absolute Lymphocyte Count 1.31 X10^3/uL (0.83-4.51); Absolute Neutrophil Count 3.2 X10^3/uL (2.0-7.7); Basophil# 0.04 X10^3/uL; Basophil% 0.7 % (0-1); Eosinophil# 0.05 X10^3/uL; Eosinophils% 0.9 % (0-5); Hematocrit 40.2 % (37-47); Hemoglobin 13.2 g/dL (12.0-15.0); Lymphocyte # 1.31 X10^3/ul (0.83-4.51); Lymphocyte % 24.5 % (19-41); Mean Corp Hgb Conc 32.8 g/dL (32-36); Mean Corpuscular Hgb 33.2 pg (27.0-32.0); Mean Platelet Vol. 9.5 fl (6.2-12.0); Monocyte# 0.77 X10^3/uL; Monocyte% 14.4 % (0-10); NRBC Flagged by Analyzer 0 % (0-5); Neutrophil # 3.15 X10^3/uL (2.7-7.7); Neutrophil % 59.1 % (47-70); Platelet Count 254 K/mm3 (150-450); RBC Distribution Width SD 45.1 fl (35.1-43.9); Red Blood Count 3.98 M/mm3 (4.2-5.4); White Blood Count 5.3 K/mm3 (4.4-11.0)
[2024-03-22 18:00] LABS: AST(SGOT) 64 U/L (15-37); Alanine Aminotransfer ALT/SGPT 63 U/L (13-56); Albumin, Serum 4.1 g/dL (3.2-5.0); Alkaline Phosphatase 60 U/L (45-117); Anion Gap 8 (5-15); BUN 14 mg/dL (7-18); BUN/Creat Ratio 17.2 RATIO (10-20); Bilirubin, Direct 0.17 mg/dL (0.00-0.30); Calcium,Total 9.8 mg/dL (8.5-10.1); Chloride 104 mmol/L (98-107); Cholesterol 290 mg/dL (200); Creatinine, Serum 0.81 mg/dL (0.55-1.02); EST Glomerular Filtration Rate 75 mL/min (>60); Est Glom Filt Rate - Afr Amer 91 mL/min (>60); Globulin 3.7 g/dL (2.2-4.2); Glucose 101 mg/dL (74-106); High Density Lipoprotein 126 mg/dL; Potassium 3.4 mmol/L (3.5-5.1); Protein, Total 7.8 g/dL (6.4-8.2); Sodium Level 137 mmol/L (136-145); Triglycerides 95 mg/dL; Very Low Density Lipoprotein 19 mg/dL (5-40)
[2024-03-24 08:07] LABS: LDL, Direct 120295 178 mg/dL (0-99)
[2024-03-27 11:07] LABS: QNTFERON TB Mitogen Value > 10.00 IU/mL (.); QNTFERON TB Nil Value 0.03 IU/mL (.); QNTFERON TB1+ Ag Value 0.03 IU/mL (.); QNTFERON TB2+ Ag Value 0.02 IU/mL (.); QNTIFERON TB Positive Criteria Negative (Negative)
== END | disposition home or self-care (01) ==
LOC: MTLAB 16:40
PROVIDERS: PCP Family Medicine; Referring Provider Dermatology Pediatric Dermatology; Visit Provider Dermatology Pediatric Dermatology
DX: L20.89 Other atopic dermatitis (principal)
CPT/HCPCS: 36415; 80048; 80061; 80076; 83721; 85025; 86480